=== PATIENT | female | born 1935 | race Asian ===

== ENCOUNTER 2018-11-15 16:45 | Inpatient (IN) | payer OTHER, MEDICAID ==
[~2018-11-15] VITALS: Wt 44.7 kg
[2018-11-15 17:59] LABS: BASO % 0 % (0-3); EOS # 0.1 x10^3/uL (0.0-0.7); EOS % 1 % (0-3); HEMATOCRIT 35.2 % (36.0-47.0); HEMOGLOBIN 11.5 g/dL (12.0-15.5); LYMPH # 1.3 x10^3/uL (1.0-4.8); LYMPH % 19 % (24-48); MEAN CORPUSCULAR HEMOGLOBIN 30 pg (25-35); MEAN CORPUSCULAR HGB CONC 33 g/dL (31-37); MEAN CORPUSCULAR VOLUME 91 fL (79-100); MONO # 0.6 x10^3/uL (0.0-1.1); MONO % 10 % (0-9); NEUT # 4.7 x10^3uL (1.8-7.7); NEUT % 70 % (31-73); PLATELET COUNT 220 x10^3/uL (140-400); RED BLOOD COUNT 3.86 x10^6/uL (3.50-5.40); RED CELL DISTRIBUTION WIDTH 14.3 % (11.5-14.5); WHITE BLOOD COUNT 6.8 x10^3/uL (4.0-11.0)
[2018-11-15 18:03] LABS: BILIRUBIN,URINE NEGATIVE (NEG); CLARITY,URINE CLEAR; COLOR,URINE YELLOW; NITRITE,URINE NEGATIVE (NEG); PH,URINE 5.5; PROTEIN,URINE NEGATIVE (NEG-TRACE); UROBILINOGEN,URINE 0.2 mg/dL (0.2 mg/dL)
--- NOTE | 2018-11-15 18:03 | PHYS DOC ---
Past Medical History Past Medical History: Arthritis, Dementia, High Cholesterol, Hypertension, Stroke (TURNER BETANCUR RESEARCH ASSISTANT PROFESSOR) Past Surgical History: No Surgical History (TURNER BETANCUR RESEARCH ASSISTANT PROFESSOR) Alcohol Use: None Drug Use: None (TURNER BETANCUR RESEARCH ASSISTANT PROFESSOR) Adult General Chief Complaint Chief Complaint: PSYCH EVALUATION HPI HPI Patient is a 83 year old female with history of dementia, hypertension, high cholesterol, who presents to the ED today from a halfway for psychiatric evaluation. Patient is in the ED with the son. The son states he was living with patient for a long time. He states on Tuesday he took patient to a halfway because he was unable to care for her anymore. He states when patient was admitted to the halfway, she was put in a shared room. He states yesterday patient went to the roommate and started removing all her clothes off assuming they were has. The halfway got concerned and sent patient to [facility]. He states she evaluated at [facility] and sent back to the halfway. He states this afternoon he was called and instructed he needs to get patient a psychiatric evaluation because she was walking into other people's rooms and touching them not inappropriately though. Son states patient also was reported to have locked herself in her room. Son states this is not unusual behavior, he states patient used to lock the door at home and could be doing the same behavior at the nursing carmine. Patient unfortunately speaks Marta only and no one in the halfway can communicate with her. Delaney from the PAT team is in the ED. She went and spoke to patient's son with patient in the room. She states [facility] can accept patient if we get EKG, CT of the head, chest x-ray, urine and blood work. Patient had similar tests done at [facility], we tried getting those results, none has been sent by now. We will proceed with getting the same labs here considering [facility] has not sent up labs yet. Labs are negative for any acute findings. UA is negative. Ct of the Head and chest xray are negative. Tx to [facility] (TURNER BETANCUR RESEARCH ASSISTANT PROFESSOR) Review of Systems Review of Systems Constitutional: Denies fever or chills [] Eyes: Denies change in visual acuity, redness, or eye pain [] HENT: Denies nasal congestion or sore throat [] Respiratory: Denies cough or shortness of breath [] Cardiovascular: No additional information not addressed in HPI [] GI: Denies abdominal pain, nausea, vomiting, bloody stools or diarrhea [] : Denies dysuria or hematuria [] Musculoskeletal: Denies back pain or joint pain [] Integument: Denies rash or skin lesions [] Neurologic: Denies headache, focal weakness or sensory changes [] Psych: Psychiatric evaluation All other systems were reviewed and found to be within normal limits, except as documented in this note. (TURNER BETANCUR APRN) Allergies Allergies Allergies Coded Allergies Type Severity Reaction Last Updated Verified No Known Drug Allergies 11/15/18 No (ASHER RAMIREZ Jr. DO) Physical Exam Physical Exam Constitutional: Well developed, well nourished, no acute distress, non-toxic appearance. [] HENT: Normocephalic, atraumatic, bilateral external ears normal, oropharynx moist, no oral exudates, nose normal. [] Eyes: PERRLA, EOMI, conjunctiva normal, no discharge. [] Neck: Normal range of motion, no tenderness, supple, no stridor. [] Cardiovascular:Heart rate regular rhythm, no murmur [] Lungs & Thorax: Bilateral breath sounds clear to auscultation [] Abdomen: Bowel sounds normal, soft, no tenderness, no masses, no pulsatile masses. [] Skin: Warm, dry, no erythema, no rash. [] Back: No tenderness, no CVA tenderness. [] Extremities: No tenderness, no cyanosis, no clubbing, ROM intact, no edema. [] Neurologic: Alert and oriented X 3, normal motor function, normal sensory function, no focal deficits noted. [] Psychologic: Flat affect (TURNER BETANCUR APRN) Current Patient Data Vital Signs Vital Signs Date Time Temp Pulse Resp B/P (MAP) Pulse Ox O2 Delivery O2 Flow Rate FiO2 11/15/18 22:30 58 14 99 Room Air 11/15/18 17:13 99.1 113/64 (80) 99.1 (ASHER RAMIREZ Jr. DO) Lab Values Laboratory Tests Test 11/15/18 17:45 11/15/18 17:51 White Blood Count 6.8 x10^3/uL (4.0-11.0) Red Blood Count 3.86 x10^6/uL (3.50-5.40) Hemoglobin 11.5 g/dL (12.0-15.5) L Hematocrit 35.2 % (36.0-47.0) L Mean Corpuscular Volume 91 fL (79-100) Mean Corpuscular Hemoglobin 30 pg (25-35) Mean Corpuscular Hemoglobin Concent 33 g/dL (31-37) Red Cell Distribution Width 14.3 % (11.5-14.5) Platelet Count 220 x10^3/uL (140-400) Neutrophils (%) (Auto) 70 % (31-73) Lymphocytes (%) (Auto) 19 % (24-48) L Monocytes (%) (Auto) 10 % (0-9) H Eosinophils (%) (Auto) 1 % (0-3) Basophils (%) (Auto) 0 % (0-3) Neutrophils # (Auto) 4.7 x10^3uL (1.8-7.7) Lymphocytes # (Auto) 1.3 x10^3/uL (1.0-4.8) Monocytes # (Auto) 0.6 x10^3/uL (0.0-1.1) Eosinophils # (Auto) 0.1 x10^3/uL (0.0-0.7) Basophils # (Auto) 0.0 x10^3/uL (0.0-0.2) Sodium Level 144 mmol/L (136-145) Potassium Level 3.7 mmol/L (3.5-5.1) Chloride Level 105 mmol/L (98-107) Carbon Dioxide Level 28 mmol/L (21-32) Anion Gap 11 (6-14) Blood Urea Nitrogen 25 mg/dL (7-20) H Creatinine 0.9 mg/dL (0.6-1.0) Estimated GFR (Cockcroft-Gault) 59.7 BUN/Creatinine Ratio 28 (6-20) H Glucose Level 124 mg/dL (70-99) H Calcium Level 9.1 mg/dL (8.5-10.1) Total Bilirubin 0.5 mg/dL (0.2-1.0) Aspartate Amino Transferase (AST) 16 U/L (15-37) Alanine Aminotransferase (ALT) 19 U/L (14-59) Alkaline Phosphatase 84 U/L (46-116) Troponin I Quantitative < 0.017 ng/mL (0.000-0.055) XU-Dbp-S-Type Natriuretic Peptide 33 pg/mL (0-449) Total Protein 7.5 g/dL (6.4-8.2) Albumin 3.3 g/dL (3.4-5.0) L Albumin/Globulin Ratio 0.8 (1.0-1.7) L Ethyl Alcohol Level < 10 mg/dL (0-10) Urine Collection Type U cath Urine Color Yellow Urine Clarity Clear Urine pH 5.5 Urine Specific [place] >=1.030 Urine Protein Negative mg/dL (NEG-TRACE) Urine Glucose (UA) Negative mg/dL (NEG) Urine Ketones (Stick) Negative mg/dL (NEG) Urine Blood Moderate (NEG) Urine Nitrite Negative (NEG) Urine Bilirubin Negative (NEG) Urine Urobilinogen Dipstick 0.2 mg/dL (0.2 mg/dL) Urine Leukocyte Esterase Negative (NEG) Urine RBC 1-2 /HPF (0-2) Urine WBC 1-4 /HPF (0-4) Urine Bacteria 0 /HPF (0-FEW) Urine Mucus Mod /LPF Urine Opiates Screen Neg (NEG) Urine Methadone Screen Neg (NEG) Urine Barbiturates Neg (NEG) Urine Phencyclidine Screen Neg (NEG) Urine Amphetamine/Methamphetamine Neg (NEG) Urine Benzodiazepines Screen Neg (NEG) Urine Cocaine Screen Neg (NEG) Urine Cannabinoids Screen Neg (NEG) Urine Ethyl Alcohol Neg (NEG) Laboratory Tests 11/15/18 17:45 Laboratory Tests 11/15/18 17:45 (ASHER RAMIREZ Jr. DO) Lab Values Laboratory Tests Test 11/15/18 17:45 11/15/18 17:51 White Blood Count 6.8 x10^3/uL (4.0-11.0) Red Blood Count 3.86 x10^6/uL (3.50-5.40) Hemoglobin 11.5 g/dL (12.0-15.5) L Hematocrit 35.2 % (36.0-47.0) L Mean Corpuscular Volume 91 fL (79-100) Mean Corpuscular Hemoglobin 30 pg (25-35) Mean Corpuscular Hemoglobin Concent 33 g/dL (31-37) Red Cell Distribution Width 14.3 % (11.5-14.5) Platelet Count 220 x10^3/uL (140-400) Neutrophils (%) (Auto) 70 % (31-73) Lymphocytes (%) (Auto) 19 % (24-48) L Monocytes (%) (Auto) 10 % (0-9) H Eosinophils (%) (Auto) 1 % (0-3) Basophils (%) (Auto) 0 % (0-3) Neutrophils # (Auto) 4.7 x10^3uL (1.8-7.7) Lymphocytes # (Auto) 1.3 x10^3/uL (1.0-4.8) Monocytes # (Auto) 0.6 x10^3/uL (0.0-1.1) Eosinophils # (Auto) 0.1 x10^3/uL (0.0-0.7) Basophils # (Auto) 0.0 x10^3/uL (0.0-0.2) Sodium Level 144 mmol/L (136-145) Potassium Level 3.7 mmol/L (3.5-5.1) Chloride Level 105 mmol/L (98-107) Carbon Dioxide Level 28 mmol/L (21-32) Anion Gap 11 (6-14) Blood Urea Nitrogen 25 mg/dL (7-20) H Creatinine 0.9 mg/dL (0.6-1.0) Estimated GFR (Cockcroft-Gault) 59.7 BUN/Creatinine Ratio 28 (6-20) H Glucose Level 124 mg/dL (70-99) H Calcium Level 9.1 mg/dL (8.5-10.1) Total Bilirubin 0.5 mg/dL (0.2-1.0) Aspartate Amino Transferase (AST) 16 U/L (15-37) Alanine Aminotransferase (ALT) 19 U/L (14-59) Alkaline Phosphatase 84 U/L (46-116) Troponin I Quantitative < 0.017 ng/mL (0.000-0.055) MP-Vms-D-Type Natriuretic Peptide 33 pg/mL (0-449) Total Protein 7.5 g/dL (6.4-8.2) Albumin 3.3 g/dL (3.4-5.0) L Albumin/Globulin Ratio 0.8 (1.0-1.7) L Ethyl Alcohol Level < 10 mg/dL (0-10) Urine Collection Type U cath Urine Color Yellow Urine Clarity Clear Urine pH 5.5 Urine Specific [place] >=1.030 Urine Protein Negative mg/dL (NEG-TRACE) Urine Glucose (UA) Negative mg/dL (NEG) Urine Ketones (Stick) Negative mg/dL (NEG) Urine Blood Moderate (NEG) Urine Nitrite Negative (NEG) Urine Bilirubin Negative (NEG) Urine Urobilinogen Dipstick 0.2 mg/dL (0.2 mg/dL) Urine Leukocyte Esterase Negative (NEG) Urine RBC 1-2 /HPF (0-2) Urine WBC 1-4 /HPF (0-4) Urine Bacteria 0 /HPF (0-FEW) Urine Mucus Mod /LPF Urine Opiates Screen Neg (NEG) Urine Methadone Screen Neg (NEG) Urine Barbiturates Neg (NEG) Urine Phencyclidine Screen Neg (NEG) Urine Amphetamine/Methamphetamine Neg (NEG) Urine Benzodiazepines Screen Neg (NEG) Urine Cocaine Screen Neg (NEG) Urine Cannabinoids Screen Neg (NEG) Urine Ethyl Alcohol Neg (NEG) Laboratory Tests 11/15/18 17:45 Laboratory Tests 11/15/18 17:45 (TURNER BETANCUR APRN) EKG EKG 18:[address] Ramirez sinus rhythm HR 73 no STEMI[] (TURNER BETANCUR APRN) Radiology/Procedures Radiology/Procedures chest xray interpreted by Dr. Ramirez is negative for any acute findings. [] (TURNER BETANCUR APRN) Course & Med Decision Making Course & Med Decision Making Pertinent Labs and Imaging studies reviewed. (See chart for details) See history of present illness (TURNER BETANCUR APRN) Course & Med Decision Making Patient was seen and evaluated by PAT team. Initial plan was for patient to be transferred to [facility] health unit; however, [facility] is out of network for patient's care plan and patient's son wants patient to remain within network. Vaishali with PAT team was unable to find accepting facility and patient will be admitted overnight and PAT team will reevaluate in the morning. (ASHER RAMIREZ Jr. DO) Dragon Disclaimer Dragon Disclaimer This electronic medical record was generated, in whole or in part, using a voice recognition dictation system. 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
[2018-11-15 18:05] LABS: BACTERIA,URINE 0 /HPF (0-FEW)
[2018-11-15 18:08] LABS: CALCIUM 9.1 mg/dL (8.5-10.1); CREATININE 0.9 mg/dL (0.6-1.0); GFR 59.7; POTASSIUM 3.7 mmol/L (3.5-5.1)
[2018-11-15 18:11] LABS: BARBITURATES NEG (NEG); BENZODIAZEPINES NEG (NEG); CANNABINOIDS NEG (NEG); COCAINE NEG (NEG); METHADONE NEG (NEG); OPIATES NEG (NEG); PHENCYCLIDINE NEG (NEG)
[2018-11-15 18:13] LABS: ALBUMIN 3.3 g/dL (3.4-5.0); ALBUMIN/GLOBULIN RATIO 0.8 (1.0-1.7); TOTAL BILIRUBIN 0.5 mg/dL (0.2-1.0); TOTAL PROTEIN 7.5 g/dL (6.4-8.2)
[2018-11-15 18:15] LABS: AMPHETAMINE/METHAMPHETAMINE NEG (NEG)
--- NOTE | 2018-11-15 18:34 | RAD ---
PQRS Compliance statement: One or more of the following individualized dose reduction techniques were utilized for this examination: 1. Automated exposure control. 2. Adjustment of the mA and/or kV according to patient size. 3. Use of iterative reconstruction technique. Indication:AMS, PRIOR SENT TECHNIQUE: CT head without IV contrast COMPARISON:07/07/2011 FINDINGS: No pathologic extra-axial or intra-axial fluid collection. Mild diffuse cerebral atrophy. The ventricles and basal cisterns are within normal limits. No acute intracranial bleed. No focal loss of loya-white differentiation. Orbits within normal limits. Atherosclerotic calcification seen in the bilateral cavernous segments of the ICA. No suspicious calvarial lesion. Visualized paranasal sinuses and mastoid air cells are clear. IMPRESSION: 1. No acute intracranial process. If concern for acute ischemic stroke is high, please consider MRI brain. Electronically signed by: Edgar Kaur DO (11/15/2018 6:31 PM) [facility]
--- NOTE | 2018-11-15 19:26 | RAD ---
Indication:ER PATIENT. ALTERED MENTAL STATUS. Hx HTN. TECHNIQUE:Portable AP chest X-ray COMPARISON:None FINDINGS: Heart is top normal in size. Aortic knob calcifications suggesting systemic arterial hypertension. Bilateral coarse interstitial opacities. No focal consolidation. No pneumothorax or large pleural effusion. Visualized bony thorax is within normal limits. Mild dextro sclerosis of the midthoracic spine. IMPRESSION: Bilateral interstitial opacities may be secondary to chronic interstitial changes, atypical/viral infection or interstitial pulmonary edema. Electronically signed by: Edgar Kaur DO (11/15/2018 7:23 PM) [facility]
--- NOTE | 2018-11-15 23:40 | NUR ---
The patient, LILLIAM KHANNA, 83 y/o, F admitted by LIDIA ELLER III, DO, was given written information regarding hospital policies, unit procedures and contact persons. Valuables were checked and left with the patient.
[2018-11-16] MEDS ORDERED: LISI10TA2 PO (01:06)
[2018-11-16] MEDS ORDERED: ERGO500027 PO (01:06)
[2018-11-16] MEDS ORDERED: ASPI-630 PO (01:06)
[2018-11-16] MEDS ORDERED: PRAV20TA2 PO (01:06)
[2018-11-16 03:00] VITALS: BP 114/61
--- NOTE | 2018-11-16 06:46 | EKG ---
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
[2018-11-16 07:00] VITALS: BP 121/69
--- NOTE | 2018-11-16 10:51 | NUR ---
GEMA notified by RN pt needs [facility] evaluation at [facility]. GEMA phoned and faxed referral to [facility]. Pt admission and acceptance pending. Will continue to follow.
[2018-11-16 11:00] VITALS: BP 125/71
[2018-11-16 11:25] LABS: ALBUMIN/GLOBULIN RATIO 0.8 (1.0-1.7); CALCIUM 8.2 mg/dL (8.5-10.1); CREATININE 0.7 mg/dL (0.6-1.0); GFR 79.7; POTASSIUM 3.6 mmol/L (3.5-5.1); TOTAL BILIRUBIN 0.7 mg/dL (0.2-1.0); TOTAL PROTEIN 6.9 g/dL (6.4-8.2)
--- NOTE | 2018-11-16 11:45 | NUR ---
Social Work is working on details for discharge to [facility].
--- NOTE | 2018-11-16 12:09 | SSS ---
ADMIT DATE: 11/15/2018 ADMIT AND DISCHARGE DATE: . CHIEF COMPLAINT: Mental status change. HISTORY OF PRESENT ILLNESS: The patient is a pleasant elderly female, who presented with mental status change. She has dementia. She was [facility] from her [facility] for a psychiatric evaluation. The ER called me and explained they were trying to send her to [facility], but that could not happen until she was cleared by us. I saw her a few minutes ago in her room, she seemed to be medically stable to go to [facility]. PAST MEDICAL HISTORY: Dementia, arthritis, hypertension, hyperlipidemia. ALLERGIES: None. FAMILY HISTORY: Coronary artery disease and dementia. SOCIAL HISTORY: She does not drink, smoke or take drugs. MEDICATIONS: Reviewed. She is on pravastatin, lisinopril and aspirin. REVIEW OF SYSTEMS: Unable to obtain. The patient is too confused. PHYSICAL EXAMINATION: VITAL SIGNS: Temperature afebrile, pulse 92, respirations 18, blood pressure 121/69. GENERAL: She is up, walking. Her son is present. He is good support for her. HEART: Distant S1 and S2. LUNGS: Clear. ABDOMEN: Soft. EXTREMITIES: No edema. SKIN: No rash. ENDOCRINE: No thyromegaly. LYMPHATICS: No cervical nodes. HEMATOPOIETIC: No bruising. PSYCHIATRIC: She is anxious. NEUROLOGICAL: She is very confused. LABORATORY DATA AND DIAGNOSTIC STUDIES: Hemoglobin is 11.5, otherwise her hematology is normal. Her electrolytes are normal. Drug screen is negative. Urinalysis is negative. CT of the head negative. ASSESSMENT AND PLAN: Acute on chronic flare of progression of her dementia. The patient is being transferred to [facility]. DISPOSITION: [facility]. ACTIVITY: As tolerated. DIET: Regular. MEDICATIONS: Resume her previous meds. TOTAL TIME: 31 minutes. LIDIA ELLER DO DR: STEPHAN/nicolas JOB#: [id number] / [id number]
--- NOTE | 2018-11-16 12:15 | NUR ---
[facility] is out of network with pt's insurance. SW phoned and faxed referral to [facility]. Pt's son provided DPOA paperwork and a copy placed in chart. Pt admission and acceptance pending. Will continue to follow.
[2018-11-16 15:00] VITALS: BP 150/65
--- NOTE | 2018-11-16 15:14 | DS ---
DATE OF DISCHARGE: 11/16/2018 ADMISSION DIAGNOSIS: Owqlw-ky-yvumqyk progression of dementia. DISCHARGE DIAGNOSIS: [id number] progression of dementia. HOSPITAL COURSE: The patient is a pleasant 83-year-old female who presented with acute flare of her dementia. Basically, [facility] was at [facility], they could not care for her anymore. She was getting too irritated and confused. We admitted the patient, did a medical evaluation. Everything seems to be okay. She just seems to be progressing with her dementia. She is going to go to [facility]. It should be noted I have declared the patient incompetent to make medical decision. I would like that incompetency is effective as of today and I would like her son to become her DPOA for medical decision making from this point forward. DISPOSITION: [facility]. ACTIVITY: As tolerated. DIET: Low sodium. MEDICATIONS: Please see the MRAD. LIDIA ELLER DO DR: STEPHAN/nicolas JOB#: [id number] / [id number]
--- NOTE | 2018-11-16 15:42 | NUR ---
GEMA following pt. Spoke with Delaney, phone: [phone] at [facility] and they reported they are still reviewing clinicals. Per Delaney's request, GEMA provided phone number for Physician to call for Physician to Physician report. Physician notified.
--- NOTE | 2018-11-16 15:48 | NUR ---
GEMA following pt. Spoke with Delaney at [facility] and she reported they have accepted pt but wants a confirmation from [facility] if they will take pt back after completing treatment. Delaney had called the facility and the administrators were out office and wont return until tomorrow morning. Delaney stated they will take pt tomorrow after speaking with VIVIEN at [facility]. GEMA left a voice mail to Tyrese at [facility] as well. Discussed with ARLETTE.
[2018-11-16 19:00] VITALS: BP 190/88
[2018-11-16 23:00] VITALS: BP 138/81
[2018-11-17 07:00] VITALS: BP 140/82
--- NOTE | 2018-11-17 09:44 | NUR ---
SW following pt. Spoke with Delaney at [facility] and they are able to take pt today. SW arranged transportation via [employer] at 1100. Pt's son aware of plan, agreeable and is provided with address/phone number for [facility]. He is also aware he will have to sign pt in at Psych facility upon dc. Packet on chart. Discussed with RN and Shelly at [facility].
--- NOTE | 2018-11-17 10:20 | NUR ---
Report called to Sofia CHONG at [facility]. See nursing communication.
[2018-11-17 11:00] VITALS: BP 171/79
--- NOTE | 2018-11-17 11:21 | PDOC ---
PROGRESS NOTES Chief Complaint Chief Complaint Mental Status Change History of Present Illness History of Present Illness Patient is doing well today. She is up and ambulating well. She likes to walk the halls. She is still pleasantly confused. She does not speak Tunisian, but she is a very pleasant lady. Vitals Vitals Vital Signs Date Time Temp Pulse Resp B/P (MAP) Pulse Ox O2 Delivery O2 Flow Rate FiO2 11/17/18 08:00 Room Air 11/17/18 07:00 98.7 77 16 140/82 (101) 98 98.7 Physical Exam General: Alert, Cooperative, No acute distress Heart: Regular rate, Normal S1, Normal S2, No murmurs Lungs: Clear Abdomen: Soft, No tenderness, No masses Extremities: No edema, Normal pulses, No tenderness/swelling Skin: No rashes, No breakdown, No significant lesion Review of Systems Review of Systems Was unable to obtain ROS due to language barrier. Assessment and Plan Assessmemt and Plan Problems Medical Problems: (1) Evaluation by psychiatric service required Status: Acute (2) Senile dementia with acute confusional state Status: Acute Assessment: Dementia Mental Status Change Khmer speaker Plan: Continue monitoring F/u labs Home meds PT/OT DVT prophylaxis Discharge to [facility] Review of Relevant I have reviewed the following items javier (where applicable) has been applied. Labs Laboratory Tests Test 11/15/18 17:45 11/15/18 17:51 11/16/18 01:25 11/16/18 10:35 White Blood Count 6.8 x10^3/uL (4.0-11.0) Red Blood Count 3.86 x10^6/uL (3.50-5.40) Hemoglobin 11.5 g/dL (12.0-15.5) Hematocrit 35.2 % (36.0-47.0) Mean Corpuscular Volume 91 fL (79-100) Mean Corpuscular Hemoglobin 30 pg (25-35) Mean Corpuscular Hemoglobin Concent 33 g/dL (31-37) Red Cell Distribution Width 14.3 % (11.5-14.5) Platelet Count 220 x10^3/uL (140-400) Neutrophils (%) (Auto) 70 % (31-73) Lymphocytes (%) (Auto) 19 % (24-48) Monocytes (%) (Auto) 10 % (0-9) Eosinophils (%) (Auto) 1 % (0-3) Basophils (%) (Auto) 0 % (0-3) Neutrophils # (Auto) 4.7 x10^3uL (1.8-7.7) Lymphocytes # (Auto) 1.3 x10^3/uL (1.0-4.8) Monocytes # (Auto) 0.6 x10^3/uL (0.0-1.1) Eosinophils # (Auto) 0.1 x10^3/uL (0.0-0.7) Basophils # (Auto) 0.0 x10^3/uL (0.0-0.2) Sodium Level 144 mmol/L (136-145) 144 mmol/L (136-145) Potassium Level 3.7 mmol/L (3.5-5.1) 3.6 mmol/L (3.5-5.1) Chloride Level 105 mmol/L (98-107) 107 mmol/L (98-107) Carbon Dioxide Level 28 mmol/L (21-32) 27 mmol/L (21-32) Anion Gap 11 (6-14) 10 (6-14) Blood Urea Nitrogen 25 mg/dL (7-20) 15 mg/dL (7-20) Creatinine 0.9 mg/dL (0.6-1.0) 0.7 mg/dL (0.6-1.0) Estimated GFR (Cockcroft-Gault) 59.7 79.7 BUN/Creatinine Ratio 28 (6-20) 21 (6-20) Glucose Level 124 mg/dL (70-99) 90 mg/dL (70-99) Calcium Level 9.1 mg/dL (8.5-10.1) 8.2 mg/dL (8.5-10.1) Total Bilirubin 0.5 mg/dL (0.2-1.0) 0.7 mg/dL (0.2-1.0) Aspartate Amino Transf (AST/SGOT) 16 U/L (15-37) 15 U/L (15-37) Alanine Aminotransferase (ALT/SGPT) 19 U/L (14-59) 16 U/L (14-59) Alkaline Phosphatase 84 U/L (46-116) 75 U/L (46-116) Troponin I Quantitative < 0.017 ng/mL (0.000-0.055) DU-Wlc-E-Type Natriuretic Peptide 33 pg/mL (0-449) Total Protein 7.5 g/dL (6.4-8.2) 6.9 g/dL (6.4-8.2) Albumin 3.3 g/dL (3.4-5.0) 3.0 g/dL (3.4-5.0) Albumin/Globulin Ratio 0.8 (1.0-1.7) 0.8 (1.0-1.7) Ethyl Alcohol Level < 10 mg/dL (0-10) Urine Collection Type U cath Urine Color Yellow Urine Clarity Clear Urine pH 5.5 Urine Specific [place] >=1.030 Urine Protein Negative mg/dL (NEG-TRACE) Urine Glucose (UA) Negative mg/dL (NEG) Urine Ketones (Stick) Negative mg/dL (NEG) Urine Blood Moderate (NEG) Urine Nitrite Negative (NEG) Urine Bilirubin Negative (NEG) Urine Urobilinogen Dipstick 0.2 mg/dL (0.2 mg/dL) Urine Leukocyte Esterase Negative (NEG) Urine RBC 1-2 /HPF (0-2) Urine WBC 1-4 /HPF (0-4) Urine Bacteria 0 /HPF (0-FEW) Urine Mucus Mod /LPF Urine Opiates Screen Neg (NEG) Urine Methadone Screen Neg (NEG) Urine Barbiturates Neg (NEG) Urine Phencyclidine Screen Neg (NEG) Urine Amphetamine/Methamphetamine Neg (NEG) Urine Benzodiazepines Screen Neg (NEG) Urine Cocaine Screen Neg (NEG) Urine Cannabinoids Screen Neg (NEG) Urine Ethyl Alcohol Neg (NEG) Nasal Screen MRSA (PCR) Negative (Negative) Medications Active Scripts Active Reported Vitamin D2 (Ergocalciferol (Vitamin D2)) 50,000 Unit Capsule 1 Cap PO WEEKLY Pravastatin Sodium 20 Mg Tablet 1 Tab PO DAILY Lisinopril 10 Mg Tablet 1 Tab PO DAILY Aspirin 81 Mg Tab.chew 1 Tab PO DAILY Vitals/I & O Vital Sign - Last 24 Hours 11/16/18 11/16/18 11/16/18 11/16/18 15:00 19:00 20:00 23:00 Temp 98.3 97.8 98.4 98.3 97.8 98.4 Pulse 68 79 86 Resp 18 18 18 B/P (MAP) 150/65 (93) 190/88 (122) 138/81 (100) Pulse Ox 99 97 98 O2 Delivery Room Air Room Air Room Air Room Air 11/17/18 11/17/18 07:00 08:00 Temp 98.7 98.7 Pulse 77 Resp 16 B/P (MAP) 140/82 (101) Pulse Ox 98 O2 Delivery Room Air Room Air Intake and Output 11/16/18 11/16/18 11/17/18 15:00 23:00 07:00 Intake Total 50 ml Balance 50 ml LIDIA ELLER III DO Nov 17, 2018 11:21
--- NOTE | 2018-11-17 11:57 | NUR ---
Patient discharge to [facility]. per [facility] Amb. per emerson with copied chart in discharge envelope, and all belongings. See notes and orders.
== END 2018-11-17 11:44 | DRG 884 ==
LOC: ER 16:45 → 5 NORTH 22:53
PROVIDERS: ADMIT Internal Medicine; ATTEND Internal Medicine
DX: F03.90 Unspecified dementia, unspecified severity, without behavioral disturbance, psychotic disturbance, mood disturbance, and anxiety (principal); F05 Delirium due to known physiological condition; I10 Essential (primary) hypertension; E78.00 Pure hypercholesterolemia, unspecified; M19.90 Unspecified osteoarthritis, unspecified site; E78.5 Hyperlipidemia, unspecified; Z82.49 Family history of ischemic heart disease and other diseases of the circulatory system; Z86.73 Personal history of transient ischemic attack (TIA), and cerebral infarction without residual deficits
CPT/HCPCS: 36415; 70450; 71045; 80053; 80307; 81001; 83880; 84484; 85025; 87641; 93005; G0480; 99285-25

== ENCOUNTER 2019-06-07 09:14 | Inpatient (IN) | payer MEDICARE, MEDICAID ==
[~2019-06-07] VITALS: Ht 152.4 cm; Wt 47.2 kg
[~2019-06-07 09:14] MED LIST: ACET500T68 PO; ASPI-630 PO; BUDE0.5A NEB; CETI10TA22 PO; CHOL10003 PO; DOXY100T PO; ERGO500027 PO; HALO1TAB PO; IBUP-1027 PO; IPRA3AMP29 NEB; LACT1CAP19 PO; LISI10TA2 PO; POTA20TA4 PO; PRAV20TA2 PO; QUET50TA79 PO
--- NOTE | 2019-06-07 09:48 | PHYS DOC ---
Past Medical History Past Medical History: Arthritis (osteoarthritis), Bronchitis, CVA (R sided hemiparesis, hypokalemia), Dementia, High Cholesterol, Hypertension, Stroke, Other (vitamin D deficiency, ) Additional Past Medical Histor: abnormal gait, generalized weakness, cognitive communication deficit Past Surgical History: No Surgical History Alcohol Use: None Drug Use: None Adult General Chief Complaint Chief Complaint: HIP PAIN HPI HPI Patient is a 84 year old female brought to the emergency department by [facility] following a non-witnessed fall. Nursing staff at the [facility] called our charge nurse and reported that the patient was unable to bear weight on her L leg after being helped up. Patient was found sitting up against the wall in her room. Using the [employer] laboratory geneticist line to speak with patient, she denies any leg or hip pain. Patient's RLE is noted to be red with 2+ edema on arrival. Patient reports that she got up to go to the bathroom and slipped on the wet floor onto her buttocks. She denies LOC, N/V, or extremity pain. She only reports dull lower abdominal pain after urination and pain with urination. Review of Systems Review of Systems ROS Constitutional: Denies fever Respiratory: Denies cough or shortness of breath [] Cardiovascular: No additional information not addressed in HPI, denies chest pain [] GI: Denies nausea, vomiting, or diarrhea; see HPI : reports dysuria Musculoskeletal: Denies back pain or joint pain [] Integument: see HPI Neurologic: Denies headache Complete systems were reviewed and found to be within normal limits, except as documented in this note. Allergies Allergies Allergies Coded Allergies Type Severity Reaction Last Updated Verified No Known Drug Allergies 11/15/18 No Physical Exam Physical Exam Constitutional: Well developed, well nourished, no acute distress, non-toxic appearance. [] HENT: Normocephalic, atraumatic, bilateral external ears normal, nose normal. [] Eyes: PERRLA, no discharge. [] Neck: Normal range of motion, no tenderness, supple, no stridor. [] Cardiovascular:Heart rate regular rhythm, no murmur [] Lungs & Thorax: Bilateral breath sounds clear to auscultation, no retractions, respirations are even and unlabored,[] Abdomen: Bowel sounds normal, soft, no tenderness, no masses, no pulsatile masses. [] Skin: Warm, dry; red discoloration noted to RLE without warmth Extremities: No bony tenderness, no cyanosis, no clubbing, 2+ edema to RLE Neurologic: Alert and oriented X 2 pt has hx of dementia Psychologic: Affect normal, judgement normal, mood normal. [] Current Patient Data Vital Signs Vital Signs Date Time Temp Pulse Resp B/P (MAP) Pulse Ox O2 Delivery O2 Flow Rate FiO2 06/07/19 10:45 60 18 98 06/07/19 09:20 97.8 154/67 (96) Room Air 97.8 Lab Values Laboratory Tests Test 06/07/19 09:26 06/07/19 10:50 Urine Collection Type U cath Urine Color Yellow Urine Clarity Clear Urine pH 5.5 Urine Specific [place] 1.020 Urine Protein Negative mg/dL (NEG-TRACE) Urine Glucose (UA) Negative mg/dL (NEG) Urine Ketones (Stick) Negative mg/dL (NEG) Urine Blood Moderate (NEG) Urine Nitrite Negative (NEG) Urine Bilirubin Negative (NEG) Urine Urobilinogen Dipstick 0.2 mg/dL (0.2 mg/dL) Urine Leukocyte Esterase Negative (NEG) Urine RBC 3-5 /HPF (0-2) Urine WBC 0 /HPF (0-4) Urine Amorphous Sediment Present /HPF Urine Bacteria 0 /HPF (0-FEW) White Blood Count 6.2 x10^3/uL (4.0-11.0) Red Blood Count 4.16 x10^6/uL (3.50-5.40) Hemoglobin 12.2 g/dL (12.0-15.5) Hematocrit 37.2 % (36.0-47.0) Mean Corpuscular Volume 89 fL (79-100) Mean Corpuscular Hemoglobin 29 pg (25-35) Mean Corpuscular Hemoglobin Concent 33 g/dL (31-37) Red Cell Distribution Width 14.7 % (11.5-14.5) H Platelet Count 199 x10^3/uL (140-400) Neutrophils (%) (Auto) 68 % (31-73) Lymphocytes (%) (Auto) 20 % (24-48) L Monocytes (%) (Auto) 10 % (0-9) H Eosinophils (%) (Auto) 1 % (0-3) Basophils (%) (Auto) 0 % (0-3) Neutrophils # (Auto) 4.2 x10^3/uL (1.8-7.7) Lymphocytes # (Auto) 1.3 x10^3/uL (1.0-4.8) Monocytes # (Auto) 0.6 x10^3/uL (0.0-1.1) Eosinophils # (Auto) 0.1 x10^3/uL (0.0-0.7) Basophils # (Auto) 0.0 x10^3/uL (0.0-0.2) Prothrombin Time 13.0 SEC (11.7-14.0) Prothrombin Time INR 1.0 (0.8-1.1) Activated Partial Thromboplast Time 46 SEC (24-38) H Sodium Level 144 mmol/L (136-145) Potassium Level 3.3 mmol/L (3.5-5.1) L Chloride Level 108 mmol/L (98-107) H Carbon Dioxide Level 27 mmol/L (21-32) Anion Gap 9 (6-14) Blood Urea Nitrogen 19 mg/dL (7-20) Creatinine 0.7 mg/dL (0.6-1.0) Estimated GFR (Cockcroft-Gault) 79.5 BUN/Creatinine Ratio 27 (6-20) H Glucose Level 76 mg/dL (70-99) Lactic Acid Level 2.8 mmol/L (0.4-2.0) H Calcium Level 8.6 mg/dL (8.5-10.1) Total Bilirubin 1.2 mg/dL (0.2-1.0) H Aspartate Amino Transferase (AST) 17 U/L (15-37) Alanine Aminotransferase (ALT) 12 U/L (14-59) L Alkaline Phosphatase 77 U/L (46-116) Troponin I Quantitative < 0.017 ng/mL (0.000-0.055) Total Protein 7.7 g/dL (6.4-8.2) Albumin 3.3 g/dL (3.4-5.0) L Albumin/Globulin Ratio 0.8 (1.0-1.7) L Laboratory Tests 06/07/19 10:50 Laboratory Tests 06/07/19 10:50 EKG EKG 0934- SR leftward axis, T abnormality in inferior leads, no STEMI. rate of [address] Ramirez[] Radiology/Procedures Radiology/Procedures PROCEDURE: PELVIS PELVIS Clinical Indication: Fall, pain. Comparison: None. Findings: There is acute traumatic left subcapital femoral neck fracture. There is slight cortical offset. No significant displacement. The hip joints are intact, mild degenerative change for patient age. There is diffuse demineralization. No acute pelvic fracture is identified. The sacrum is obscured due to overlying soft tissues. IMPRESSION: Acute traumatic left subcapital femoral neck fracture.[] PROCEDURE: CHEST AP ONLY CHEST AP ONLY Clinical Indication: Fall today Comparison: AP chest January 24, 2019. Findings: Atherosclerotic and tortuous thoracic aorta. Cardiac size is normal. Lungs are clear. There is no pneumothorax. No pleural effusion is appreciated. No acute bone abnormality. There are old right lateral rib fractures. IMPRESSION: No acute cardiopulmonary process. PROCEDURE: DUPLEX LOWER EX ARTERIAL RIGHT Right LOWER EXTREMITY DUPLEX ARTERY ULTRASOUND Indication: Right lower extremity redness, pain, decreased pulses. Comparison: None. Procedure: Real-time grayscale, color flow Doppler, and Doppler spectral waveform analysis of the arterial system of the lower extremity is performed. Findings: Atherosclerotic calcifications are noted. No arterial occlusion is seen. Waveforms in the common femoral, profunda, superficial femoral, and popliteal arteries are triphasic. Anterior tibial artery waveform is biphasic. Monophasic waveforms in the posterior tibial, peroneal, and dorsalis pedis arteries suggest there is flow limiting stenosis in the proximal calf. No focal elevated peak systolic velocity is identified. IMPRESSION: Monophasic waveforms in all calf arteries except the anterior tibial artery suggests flow-limiting stenosis in the proximal calf. Course & Med Decision Making Course & Med Decision Making Pertinent Labs and Imaging studies reviewed. (See chart for details) Dx: L hip fracture, RLE stenosis, fall 1107- spoke with Dr. Mishra re: hip fracture, he states it does not appear acute, requests CT of pelvis 1111- Spoke with Dr. Carson who is the admitting physician, and care was assumed following discussion of patient. Patient's vital signs stable. Patient remains afebrile, appears nontoxic, respirations even and unlabored. Patient will be admitted to the med/surg floor. Patient's case and plan of care also discussed with Dr. Ramirez [] Dragon Disclaimer Dragon Disclaimer This electronic medical record was generated, in whole or in part, using a voice recognition dictation system. 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
[2019-06-07 09:53] LABS: BILIRUBIN,URINE NEGATIVE (NEG); CLARITY,URINE CLEAR; COLOR,URINE YELLOW; NITRITE,URINE NEGATIVE (NEG); PH,URINE 5.5; PROTEIN,URINE NEGATIVE (NEG-TRACE); UROBILINOGEN,URINE 0.2 mg/dL (0.2 mg/dL)
[2019-06-07 10:02] LABS: AMORPHOUS SEDIMENT,UR PRESENT /HPF; BACTERIA,URINE 0 /HPF (0-FEW); WBC,URINE 0 /HPF (0-4)
--- NOTE | 2019-06-07 10:19 | RAD ---
PELVIS Clinical Indication: Fall, pain. Comparison: None. Findings: There is acute traumatic left subcapital femoral neck fracture. There is slight cortical offset. No significant displacement. The hip joints are intact, mild degenerative change for patient age. There is diffuse demineralization. No acute pelvic fracture is identified. The sacrum is obscured due to overlying soft tissues. IMPRESSION: Acute traumatic left subcapital femoral neck fracture. Electronically signed by: Nba Vargas MD (06/07/2019 10:16 AM) [id number]
--- NOTE | 2019-06-07 10:21 | RAD ---
CHEST AP ONLY Clinical Indication: Fall today Comparison: AP chest January 24, 2019. Findings: Atherosclerotic and tortuous thoracic aorta. Cardiac size is normal. Lungs are clear. There is no pneumothorax. No pleural effusion is appreciated. No acute bone abnormality. There are old right lateral rib fractures. IMPRESSION: No acute cardiopulmonary process. Electronically signed by: Nba Vargas MD (06/07/2019 10:18 AM) [id number]
[2019-06-07 10:59] LABS: BASO % 0 % (0-3); EOS # 0.1 x10^3/uL (0.0-0.7); EOS % 1 % (0-3); HEMATOCRIT 37.2 % (36.0-47.0); HEMOGLOBIN 12.2 g/dL (12.0-15.5); LYMPH # 1.3 x10^3/uL (1.0-4.8); LYMPH % 20 % (24-48); MEAN CORPUSCULAR HEMOGLOBIN 29 pg (25-35); MEAN CORPUSCULAR HGB CONC 33 g/dL (31-37); MEAN CORPUSCULAR VOLUME 89 fL (79-100); MONO # 0.6 x10^3/uL (0.0-1.1); MONO % 10 % (0-9); NEUT # 4.2 x10^3/uL (1.8-7.7); NEUT % 68 % (31-73); PLATELET COUNT 199 x10^3/uL (140-400); RED BLOOD COUNT 4.16 x10^6/uL (3.50-5.40); RED CELL DISTRIBUTION WIDTH 14.7 % (11.5-14.5); WHITE BLOOD COUNT 6.2 x10^3/uL (4.0-11.0)
--- NOTE | 2019-06-07 11:02 | RAD ---
Right LOWER EXTREMITY DUPLEX ARTERY ULTRASOUND Indication: Right lower extremity redness, pain, decreased pulses. Comparison: None. Procedure: Real-time grayscale, color flow Doppler, and Doppler spectral waveform analysis of the arterial system of the lower extremity is performed. Findings: Atherosclerotic calcifications are noted. No arterial occlusion is seen. Waveforms in the common femoral, profunda, superficial femoral, and popliteal arteries are triphasic. Anterior tibial artery waveform is biphasic. Monophasic waveforms in the posterior tibial, peroneal, and dorsalis pedis arteries suggest there is flow limiting stenosis in the proximal calf. No focal elevated peak systolic velocity is identified. IMPRESSION: Monophasic waveforms in all calf arteries except the anterior tibial artery suggests flow-limiting stenosis in the proximal calf. Electronically signed by: Nba Vargas MD (06/07/2019 10:59 AM) [id number]
[2019-06-07 11:12] LABS: CALCIUM 8.6 mg/dL (8.5-10.1); CREATININE 0.7 mg/dL (0.6-1.0); GFR 79.5; POTASSIUM 3.3 mmol/L (3.5-5.1)
[2019-06-07] MEDS ORDERED: CETIRIZINE HCL 10 MG TABLET. PO PRN (11:15)
[2019-06-07] MEDS ORDERED: HYDROcodone/APAP 5/325MG 1 TAB TABLET PO PRN (11:15)
[2019-06-07] MEDS ORDERED: MORPHINE SULFATE 2 MG/ML VIAL. IV PRN (11:15)
[2019-06-07] MEDS ORDERED: ONDANSETRON PF 4 MG/2 ML VIAL. IVP PRN (11:15)
[2019-06-07] MEDS ORDERED: CALCIUM CARBONATE 500 MG TAB.CHEW PO PRN (11:15)
[2019-06-07] MEDS ORDERED: TEMAZEPAM 7.5 MG CAPSULE PO PRN (11:15)
[2019-06-07] MEDS ORDERED: cloNIDine HCL 0.1 MG TABLET PO PRN (11:15)
[2019-06-07] MEDS: IPRATRPIUM/ALBUTEROL 0.5/2.5MG 3 ML NEBU. NEB SCH ×3 (11:24→19:55)
[2019-06-07] MEDS: BUDESONIDE 0.5 MG/2 ML NEBU. NEB SCH ×2 (11:24→19:55)
[2019-06-07 11:27] LABS: ALBUMIN 3.3 g/dL (3.4-5.0); ALBUMIN/GLOBULIN RATIO 0.8 (1.0-1.7); TOTAL BILIRUBIN 1.2 mg/dL (0.2-1.0); TOTAL PROTEIN 7.7 g/dL (6.4-8.2)
--- NOTE | 2019-06-07 11:46 | EKG ---
[facility] [address] [place] [address] Test Date: 2019-06-07 Test Time: 09:34:08 Pat Name: LILLIAM KHANNA Department: Room: Gender: F Transmission Calibration Engineer: : [id number] Requested By: ANGELITA SAEED Order Number: [id number] Reading MD: Jovany Cole MD Measurements Intervals [place] Rate: 66 P: 12 MA: 198 QRS: -16 QRSD: 94 T: 8 QT: 394 QTc: 414 Interpretive Statements SINUS RHYTHM Electronically Signed On 06-25-2019 8:16:28 TOW FEEDER by Jovany Cole MD
--- NOTE | 2019-06-07 11:51 | PDOC1 ---
History and Physical Date of Admission Date of Admission DATE: 06/07/19 TIME: 11:46 Identification/Chief Complaint Chief Complaint unwitnessed fall at SNU Source Source: Caregiver, Chart review History of Present Illness History of Present Illness NOt the best historian, lives in SNU and just speaks [place], Full code, unwitnessed fall in SNU. Sent here, SOme redness legs, no skin breaks, no fevers, non toxic appearing but maybe confused. VS and labs ok. Hip xray: Acute traumatic left subcapital femoral neck fracture. CXR: non impressive Arterial dopplers maybe slow wave pattern Ortho requests CT extremity, could be a subacute/chronic fx vs an acute one NO fam at bedside Past Medical History Cardiovascular: HTN, Hyperlipidemia Pulmonary: No pertinent hx GI: No pertinent hx Heme/Onc: No pertinent hx Hepatobiliary: No pertinent hx Psych: Psychosis Rheumatologic: No pertinent hx Infectious disease: No pertinent hx Renal/: No pertinent hx Endocrine: No pertinent hx Past Surgical History Past Surgical History: No pertinent history Family History Family History: High Cholestrol, Hypertension Social History Smoke: No ALCOHOL: none Drugs: None Current Problem List Problem List Problems Medical Problems: (1) Closed left hip fracture Status: Acute (2) Fall Status: Acute (3) 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 Status: Acute Current Medications Current Medications Current Medications Clonidine HCl (Catapres) 0.1 mg PRN Q1HR PRN PO HYPERTENSION; Start 06/07/19 at 11:15 Acetaminophen (Tylenol) 500 mg TID PO ; Start 06/07/19 at 14:00 Budesonide (Pulmicort) 0.5 mg RTBID NEB Last administered on 06/07/19at 11:24; Start 06/07/19 at 12:00 Cetirizine HCl (ZyrTEC) 10 mg PRN DAILY PRN PO ALLERGIES; Start 06/07/19 at 11:15 Vitamin D (Vitamin D3) 1,000 unit DAILY PO ; Start 06/08/19 at 09:00 Albuterol/ Ipratropium (Duoneb) 3 ml RTQID NEB Last administered on 06/07/19at 11:24; Start 06/07/19 at 12:00 Lactobacillus Rhamnosus (Culturelle) 1 cap BID PO ; Start 06/07/19 at 21:00 Lisinopril (Prinivil) 10 mg DAILY PO ; Start 06/08/19 at 09:00 Potassium Chloride (Klor-Con) 20 meq DAILYWBKFT PO ; Start 06/08/19 at 08:00 Quetiapine Fumarate (SEROquel XR) 50 mg DAILY PO ; Start 06/08/19 at 09:00 Haloperidol (Haldol) 1 mg QHS PO ; Start 06/07/19 at 21:00 Atorvastatin Calcium (Lipitor) 5 mg QHS PO ; Start 06/07/19 at 21:00 Ondansetron HCl (Zofran) 4 mg PRN Q6HRS PRN IVP NAUSEA/VOMITING; Start 06/07/19 at 11:15 Acetaminophen/ Hydrocodone Bitart (Lortab 5/325) 1 tab PRN Q4HRS PRN PO PAIN; Start 06/07/19 at 11:15 Morphine Sulfate (Morphine Sulfate) 2 mg PRN Q2HR PRN IV PAIN; Start 06/07/19 at 11:15 Temazepam (Restoril) 7.5 mg PRN QHS PRN PO INSOMNIA; Start 06/07/19 at 11:15 Calcium Carbonate/ Glycine (Tums) 500 mg PRN AFTMEALHC PRN PO INDIGESTION; Start 06/07/19 at 11:15 Active Scripts Active Quetiapine Fumarate ER (Quetiapine Fumarate) 50 Mg Tab.er.24h 50 Mg PO DAILY 14 Days Klor-Con M20 (Potassium Chloride) 20 Meq Tab.er.prt 20 Meq PO DAILYWBKFT 10 Days Culturelle (Lactobacillus Rhamnosus Gg) 1 Each Cap.sprink 1 Cap PO BID 30 Days Budesonide 0.5 Mg/2 Ml Ampul.neb 0.5 Mg NEB RTBID 14 Days Duoneb 0.5-3(2.5) Mg/3 Ml (Albuterol/Ipratropium) 3 Ml Ampul.neb 3 Ml NEB RTQID 14 Days Doxycycline Hyclate 100 Mg Tablet 100 Mg PO BID 10 Days Reported Ibuprofen 400 Mg Tablet 400 Mg PO PRN Q8HRS PRN Haloperidol 1 Mg Tablet 1 Mg PO QHS Vitamin D3 (Cholecalciferol (Vitamin D3)) 1,000 Unit Tablet 1 Tab PO DAILY Zyrtec (Cetirizine Hcl) 10 Mg Tablet 1 Tab PO PRN DAILY PRN Acetaminophen 500 Mg Tablet 1 Tab PO TID Pravastatin Sodium 20 Mg Tablet 1 Tab PO DAILY Lisinopril 10 Mg Tablet 1 Tab PO DAILY Aspirin 81 Mg Tab.chew 1 Tab PO DAILY Allergies Allergies: Coded Allergies: No Known Drug Allergies (Unverified , 11/15/18) ROS Review of System limited by language barrier Physical Exam General: No acute distress HEENT: Atraumatic, PERRLA, EOMI Lungs: Clear to auscultation, Normal air movement Heart: S1S2, RRR, no thrills, no rubs, no gallops Cardiovascular: S1, S2 Abdomen: Normal bowel sounds, Soft, No tenderness, No hepatosplenomegaly, No masses Rectal Exam: not examined PELVIC: Nml ext genitalia Extremities: No clubbing, No cyanosis, No edema, Normal pulses, Other (red skinrash, anterior skin RT > left) Skin: No breakdown Vitals Vitals Vital Signs Date Time Temp Pulse Resp B/P (MAP) Pulse Ox O2 Delivery O2 Flow Rate FiO2 06/07/19 11:28 99 Room Air 06/07/19 11:15 76 18 06/07/19 09:20 97.8 154/67 (96) 97.8 Labs Labs Laboratory Tests Test 06/07/19 09:26 06/07/19 10:50 Urine Collection Type U cath Urine Color Yellow Urine Clarity Clear Urine pH 5.5 Urine Specific [place] 1.020 Urine Protein Negative mg/dL (NEG-TRACE) Urine Glucose (UA) Negative mg/dL (NEG) Urine Ketones (Stick) Negative mg/dL (NEG) Urine Blood Moderate (NEG) Urine Nitrite Negative (NEG) Urine Bilirubin Negative (NEG) Urine Urobilinogen Dipstick 0.2 mg/dL (0.2 mg/dL) Urine Leukocyte Esterase Negative (NEG) Urine RBC 3-5 /HPF (0-2) Urine WBC 0 /HPF (0-4) Urine Amorphous Sediment Present /HPF Urine Bacteria 0 /HPF (0-FEW) White Blood Count 6.2 x10^3/uL (4.0-11.0) Red Blood Count 4.16 x10^6/uL (3.50-5.40) Hemoglobin 12.2 g/dL (12.0-15.5) Hematocrit 37.2 % (36.0-47.0) Mean Corpuscular Volume 89 fL (79-100) Mean Corpuscular Hemoglobin 29 pg (25-35) Mean Corpuscular Hemoglobin Concent 33 g/dL (31-37) Red Cell Distribution Width 14.7 % (11.5-14.5) Platelet Count 199 x10^3/uL (140-400) Neutrophils (%) (Auto) 68 % (31-73) Lymphocytes (%) (Auto) 20 % (24-48) Monocytes (%) (Auto) 10 % (0-9) Eosinophils (%) (Auto) 1 % (0-3) Basophils (%) (Auto) 0 % (0-3) Neutrophils # (Auto) 4.2 x10^3/uL (1.8-7.7) Lymphocytes # (Auto) 1.3 x10^3/uL (1.0-4.8) Monocytes # (Auto) 0.6 x10^3/uL (0.0-1.1) Eosinophils # (Auto) 0.1 x10^3/uL (0.0-0.7) Basophils # (Auto) 0.0 x10^3/uL (0.0-0.2) Prothrombin Time 13.0 SEC (11.7-14.0) Prothromb Time International Ratio 1.0 (0.8-1.1) Activated Partial Thromboplast Time 46 SEC (24-38) Sodium Level 144 mmol/L (136-145) Potassium Level 3.3 mmol/L (3.5-5.1) Chloride Level 108 mmol/L (98-107) Carbon Dioxide Level 27 mmol/L (21-32) Anion Gap 9 (6-14) Blood Urea Nitrogen 19 mg/dL (7-20) Creatinine 0.7 mg/dL (0.6-1.0) Estimated GFR (Cockcroft-Gault) 79.5 BUN/Creatinine Ratio 27 (6-20) Glucose Level 76 mg/dL (70-99) Lactic Acid Level 2.8 mmol/L (0.4-2.0) Calcium Level 8.6 mg/dL (8.5-10.1) Total Bilirubin 1.2 mg/dL (0.2-1.0) Aspartate Amino Transf (AST/SGOT) 17 U/L (15-37) Alanine Aminotransferase (ALT/SGPT) 12 U/L (14-59) Alkaline Phosphatase 77 U/L (46-116) Troponin I Quantitative < 0.017 ng/mL (0.000-0.055) Total Protein 7.7 g/dL (6.4-8.2) Albumin 3.3 g/dL (3.4-5.0) Albumin/Globulin Ratio 0.8 (1.0-1.7) Laboratory Tests Test 06/07/19 09:26 06/07/19 10:50 Urine Collection Type U cath Urine Color Yellow Urine Clarity Clear Urine pH 5.5 Urine Specific [place] 1.020 Urine Protein Negative mg/dL (NEG-TRACE) Urine Glucose (UA) Negative mg/dL (NEG) Urine Ketones (Stick) Negative mg/dL (NEG) Urine Blood Moderate (NEG) Urine Nitrite Negative (NEG) Urine Bilirubin Negative (NEG) Urine Urobilinogen Dipstick 0.2 mg/dL (0.2 mg/dL) Urine Leukocyte Esterase Negative (NEG) Urine RBC 3-5 /HPF (0-2) Urine WBC 0 /HPF (0-4) Urine Amorphous Sediment Present /HPF Urine Bacteria 0 /HPF (0-FEW) White Blood Count 6.2 x10^3/uL (4.0-11.0) Red Blood Count 4.16 x10^6/uL (3.50-5.40) Hemoglobin 12.2 g/dL (12.0-15.5) Hematocrit 37.2 % (36.0-47.0) Mean Corpuscular Volume 89 fL (79-100) Mean Corpuscular Hemoglobin 29 pg (25-35) Mean Corpuscular Hemoglobin Concent 33 g/dL (31-37) Red Cell Distribution Width 14.7 % (11.5-14.5) Platelet Count 199 x10^3/uL (140-400) Neutrophils (%) (Auto) 68 % (31-73) Lymphocytes (%) (Auto) 20 % (24-48) Monocytes (%) (Auto) 10 % (0-9) Eosinophils (%) (Auto) 1 % (0-3) Basophils (%) (Auto) 0 % (0-3) Neutrophils # (Auto) 4.2 x10^3/uL (1.8-7.7) Lymphocytes # (Auto) 1.3 x10^3/uL (1.0-4.8) Monocytes # (Auto) 0.6 x10^3/uL (0.0-1.1) Eosinophils # (Auto) 0.1 x10^3/uL (0.0-0.7) Basophils # (Auto) 0.0 x10^3/uL (0.0-0.2) Prothrombin Time 13.0 SEC (11.7-14.0) Prothromb Time International Ratio 1.0 (0.8-1.1) Activated Partial Thromboplast Time 46 SEC (24-38) Sodium Level 144 mmol/L (136-145) Potassium Level 3.3 mmol/L (3.5-5.1) Chloride Level 108 mmol/L (98-107) Carbon Dioxide Level 27 mmol/L (21-32) Anion Gap 9 (6-14) Blood Urea Nitrogen 19 mg/dL (7-20) Creatinine 0.7 mg/dL (0.6-1.0) Estimated GFR (Cockcroft-Gault) 79.5 BUN/Creatinine Ratio 27 (6-20) Glucose Level 76 mg/dL (70-99) Lactic Acid Level 2.8 mmol/L (0.4-2.0) Calcium Level 8.6 mg/dL (8.5-10.1) Total Bilirubin 1.2 mg/dL (0.2-1.0) Aspartate Amino Transf (AST/SGOT) 17 U/L (15-37) Alanine Aminotransferase (ALT/SGPT) 12 U/L (14-59) Alkaline Phosphatase 77 U/L (46-116) Troponin I Quantitative < 0.017 ng/mL (0.000-0.055) Total Protein 7.7 g/dL (6.4-8.2) Albumin 3.3 g/dL (3.4-5.0) Albumin/Globulin Ratio 0.8 (1.0-1.7) VTE Prophylaxis Ordered VTE Prophylaxis Devices: Yes VTE Pharmacological Prophylaxi: Yes Assessment/Plan Assessment/Plan UNwitnessed fall [facility]U ? Acute traumatic left subcapital femoral neck fracture. - CT pending MIld slow wave pattern LEgs by arterial dopplers Dementia vs language barrier SNU resident FUll code MIld cellultis, LE PLAn: Med surg [address] NPO< IVF , IV PPI for now Ortho Full code Resume home meds except ASa and nsaids until we known for sure no sx Rocephin empiric for mild leg cellulitis, can easily shift to pO Seen at ER ASa for mild PAD ALLA DILLARD MD Jun 07, 2019 11:51
[2019-06-07] MEDS: PANTOPRAZOLE IV PUSH 40 MG VIAL. IVP SCH (12:30)
--- NOTE | 2019-06-07 13:48 | RAD ---
Noncontrast CT scan of the pelvis without comparison for left hip fracture. TECHNIQUE: Contiguous helical 3 mm axial images are obtained from the iliac crest to the pelvic floor. No IV contrast was administered. FINDINGS: There is an incompletely visualized infrarenal abdominal aortic aneurysm with an associated dissection which is age indeterminate. There is a small hypodense lesion at the inferior pole of the right kidney which likely represents a Bosniak 2 hyperdense cyst but is incompletely characterized as well. Extensive atherosclerotic changes are seen involving the iliofemoral arteries, there is likely moderate to severe stenosis of both common iliac arteries, worse on the left than the right. The urinary bladder is fluid distended but grossly unremarkable, though somewhat limited by lack of contrast administration. Uterus is present. No pelvic or adnexal masses are identified. No free fluid is seen. There are mild degenerative changes of the spine and hips. No definite fracture or acute osseous normality is identified. With regard to the left femur, there is some very subtle trabecular distortion in the subcapital region, which could relate to bone contusion, or may be spurious. If there is strong clinical concern for bone contusion or fracture involving the left hip, further evaluation with MRI should be considered. IMPRESSION: 1. No definite fracture or acute osseous abnormality involving the left hip. Very subtle trabecular distortion may be present in the subcapital region and could indicate bone contusion, though this could be spurious. Consider further evaluation with MRI if there are strong clinical concern for a left hip fracture. 2. Incompletely evaluated infrarenal abdominal aortic aneurysm, with associated age-indeterminate dissection. Consider further valuation with CTA or conventional angiography. 3. Severe aortoiliac atherosclerosis, with bilateral moderate to severe iliac stenoses, greater on the left than the right. 4. Incompletely evaluated hypodense abnormality involving the right inferior renal pole, likely a Bosniak 2 cyst. Consider further evaluation with contrast-enhanced CT scan or renal ultrasound. PQRS Compliance Statement: One or more of the following individualized dose reduction techniques were utilized for this examination: 1. Automated exposure control 2. Adjustment of the mA and/or kV according to patient size 3. Use of iterative reconstruction technique Electronically signed by: Ashu Murcia MD (06/07/2019 1:45 PM) [id number]
[2019-06-07] MEDS: ACETAMINOPHEN 500 MG TABLET PO SCH ×2 (14:00→21:09)
[2019-06-07 19:00] VITALS: BP 131/69
[2019-06-07] MEDS: HALOPERIDOL 2 MG TABLET. PO SCH (21:00)
[2019-06-07] MEDS: ATORVASTATIN CALCIUM 10 MG TABLET. PO SCH (21:09)
[2019-06-07] MEDS: LACTOBACILLUS RHAMNOSUS GG 1 CAPSULE. PO SCH (21:09)
[2019-06-07 23:00] VITALS: BP 111/58
[2019-06-07] MEDS ORDERED: IV 1/2 NORMAL SALINE 1,000 ML IV SCH (23:00)
[2019-06-08 03:00] VITALS: BP 112/53
[2019-06-08] MEDS: PANTOPRAZOLE IV PUSH 40 MG VIAL. IVP SCH (05:31)
[2019-06-08] MEDS: IPRATRPIUM/ALBUTEROL 0.5/2.5MG 3 ML NEBU. NEB SCH ×4 (06:53→20:00)
[2019-06-08] MEDS: BUDESONIDE 0.5 MG/2 ML NEBU. NEB SCH ×2 (06:53→20:00)
[2019-06-08 07:00] VITALS: BP 141/72
[2019-06-08] MEDS ORDERED: HYDROmorphone 2 MG/ML VIAL IV PRN (07:00)
[2019-06-08] MEDS ORDERED: IV RINGERS,LACTATED 1000ML 1,000 ML IV SCH (07:00)
[2019-06-08] MEDS ORDERED: MORPHINE SULFATE 2 MG/ML VIAL. IV PRN (07:00)
[2019-06-08] MEDS ORDERED: PROCHLORPERAZINE 10 MG/2 ML VIAL. IV PRN (07:00)
[2019-06-08] MEDS ORDERED: fentaNYL PF VIAL 100 MCG/2 ML VIAL IV PRN ×2 (07:00)
--- NOTE | 2019-06-08 07:40 | RAD ---
EXAM: MRI PELVIS WITHOUT CONTRAST DATE: 06/07/2019 2:08 PM CLINICAL INDICATION: Right hip pain, clinical suspicion for fracture COMPARISON: CT 06/07/2019. TECHNIQUE: Multiplanar, multisequence MR imaging of the pelvis was performed without IV contrast. FINDINGS: Large [id number] evaluation of the entire pelvis limits evaluation for fine detail. Within these constraints: Diffuse marrow edema within the right S3 and S4 sacral ala with associated underlying heterogeneous and linear T1 hypointense signal is consistent with nondisplaced fracture. Mild edema is seen within the right greater than left iliacus muscle/fossa likely low-grade strain. In general, tendinous insertions of the iliopsoas, gluteus medius and minimus are intact. Mild left trochanteric bursal fluid likely bursitis. Moderate thickening and increased signal at the left hamstring origin, moderate tendinosis. Degenerative changes of the lumbar spine are seen particularly at L5-S1. On this large baxnx-fr-heyn evaluation the pelvis, no pelvic mass, lymphadenopathy or ascites. IMPRESSION: 1. Nondisplaced right sacral insufficiency fracture. 2. Low-grade strain, bilateral iliacus muscle bellies. 3. Moderate tendinosis left hamstring origin. 4. Left trochanteric bursal fluid likely bursitis. Findings of nondisplaced right sacral insufficiency fracture was discussed with patient's nurse Thu at 7:34 AM 06/08/2019 Electronically signed by: John Mercer MD (06/08/2019 7:37 AM) [facility] [place]
[2019-06-08] MEDS ORDERED: POTASSIUM CHLORIDE 20 MEQ TABLET.ER. PO SCH (08:00)
[2019-06-08] MEDS ORDERED: MORPHINE SULFATE 5 MG, KETOROLAC 30MG VIAL 30 MG, ROPIVacaine 0.5% PF 60 ML, EPINEPHrin... INT ART ONE ×5 (08:00)
[2019-06-08] MEDS: LACTOBACILLUS RHAMNOSUS GG 1 CAPSULE. PO SCH ×2 (08:26→21:00)
[2019-06-08] MEDS: ACETAMINOPHEN 500 MG TABLET PO SCH ×3 (08:27→21:00)
[2019-06-08] MEDS: QUEtiapine 50 MG TAB.ER.24H. PO SCH (08:27)
[2019-06-08] MEDS: LISINOPRIL 10 MG TABLET PO SCH (08:27)
[2019-06-08] MEDS: CHOLECALCIFEROL (VITAMIN D3) 1,000 UNIT TABLET PO SCH (08:27)
--- NOTE | 2019-06-08 08:53 | PDOC2 ---
CONSULT Date of Consult Date of Consult DATE: 06/08/19 TIME: 08:49 Reason for Consult Reason for Consult: hip pain Referring Physician Referring Physician: Yamileth Identification/Chief Complaint Chief Complaint No complaints of pain this morning Source Source: Caregiver, Chart review, Patient History of Present Illness Reason for Visit: Patient is a pleasant 84-year-old female who normally walks a little bit and is accompanied by her son. She lives in a halfway. He tells me that she had a fall yesterday and was complaining of hip pain and inability to ambulate. This morning, the patient tells me that she isn't having any pain around her hips. She denies any hip pain in the past as well. Past Medical History Cardiovascular: HTN, Hyperlipidemia Pulmonary: No pertinent hx GI: No pertinent hx Heme/Onc: No pertinent hx Hepatobiliary: No pertinent hx Psych: Psychosis Rheumatologic: No pertinent hx Infectious disease: No pertinent hx Renal/: No pertinent hx Endocrine: No pertinent hx Past Surgical History Past Surgical History: No pertinent history Family History Family History: High Cholestrol, Hypertension Social History No ALCOHOL: none Drugs: None Lives: [facility] Current Problem List Problem List Problems Medical Problems: (1) Closed left hip fracture Status: Acute (2) Fall Status: Acute (3) 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 Status: Acute Current Medications Current Medications Current Medications Clonidine HCl (Catapres) 0.1 mg PRN Q1HR PRN PO HYPERTENSION; Start 06/07/19 at 11:15 Acetaminophen (Tylenol) 500 mg TID PO Last administered on 06/07/19at 21:09; Start 06/07/19 at 14:00 Budesonide (Pulmicort) 0.5 mg RTBID NEB Last administered on 06/08/19at 06:53; Start 06/07/19 at 12:00 Cetirizine HCl (ZyrTEC) 10 mg PRN DAILY PRN PO ALLERGIES; Start 06/07/19 at 11:15 Vitamin D (Vitamin D3) 1,000 unit DAILY PO ; Start 06/08/19 at 09:00 Albuterol/ Ipratropium (Duoneb) 3 ml RTQID NEB Last administered on 06/08/19at 06:53; Start 06/07/19 at 12:00 Lactobacillus Rhamnosus (Culturelle) 1 cap BID PO Last administered on 06/07/19at 21:09; Start 06/07/19 at 21:00 Lisinopril (Prinivil) 10 mg DAILY PO ; Start 06/08/19 at 09:00 Potassium Chloride (Klor-Con) 20 meq DAILYWBKFT PO ; Start 06/08/19 at 08:00 Quetiapine Fumarate (SEROquel XR) 50 mg DAILY PO ; Start 06/08/19 at 09:00 Haloperidol (Haldol) 1 mg QHS PO Last administered on 06/07/19at 21:00; Start 06/07/19 at 21:00 Atorvastatin Calcium (Lipitor) 5 mg QHS PO Last administered on 06/07/19at 21:09; Start 06/07/19 at 21:00 Ondansetron HCl (Zofran) 4 mg PRN Q6HRS PRN IVP NAUSEA/VOMITING; Start 06/07/19 at 11:15 Acetaminophen/ Hydrocodone Bitart (Lortab 5/325) 1 tab PRN Q4HRS PRN PO PAIN; Start 06/07/19 at 11:15 Morphine Sulfate (Morphine Sulfate) 2 mg PRN Q2HR PRN IV PAIN; Start 06/07/19 at 11:15 Temazepam (Restoril) 7.5 mg PRN QHS PRN PO INSOMNIA; Start 06/07/19 at 11:15 Calcium Carbonate/ Glycine (Tums) 500 mg PRN AFTMEALHC PRN PO INDIGESTION; Start 06/07/19 at 11:15 Pantoprazole Sodium (PROTONIX VIAL for IV PUSH) 40 mg DAILYAC IVP Last administered on 06/08/19at 05:31; Start 06/07/19 at 12:30 Sodium Chloride 1,000 ml @ 75 mls/hr [id number] IV ; Start 06/07/19 at 23:00; Stop 06/08/19 at 08:22; Status DC Fentanyl Citrate (Fentanyl 2ml Vial) 25 mcg PRN Q5MIN PRN IV MILD PAIN 1-3; Start 06/08/19 at 07:00; Stop 06/09/19 at 06:59 Fentanyl Citrate (Fentanyl 2ml Vial) 50 mcg PRN Q5MIN PRN IV MODERATE TO SEVERE PAIN; Start 06/08/19 at 07:00; Stop 06/09/19 at 06:59 Morphine Sulfate (Morphine Sulfate) 1 mg PRN Q10MIN PRN IV SEVERE PAIN 7-10; Start 06/08/19 at 07:00; Stop 06/09/19 at 06:59 Ringer's Solution 1,000 ml @ 30 mls/hr Q24H IV ; Start 06/08/19 at 07:00; Stop 06/08/19 at 18:59 Hydromorphone HCl (Dilaudid) 0.5 mg PRN Q10MIN PRN IV SEV PAIN, Second choice; Start 06/08/19 at 07:00; Stop 06/09/19 at 06:59 Prochlorperazine Edisylate (Compazine) 5 mg PACU PRN PRN IV NAUSEA, MRX1; Start 06/08/19 at 07:00; Stop 06/09/19 at 06:59 Morphine Sulfate 5 mg/Ketorolac Tromethamine 30 mg/Ropivacaine 60 ml/Epinephrine HCl 0.5 mg/Sodium Chloride 100 ml @ 100 mls/hr 1X ONCE INT ART ; Start 06/08/19 at 08:00; Stop 06/08/19 at 08:59 Active Scripts Active Quetiapine Fumarate ER (Quetiapine Fumarate) 50 Mg Tab.er.24h 50 Mg PO DAILY 14 Days Klor-Con M20 (Potassium Chloride) 20 Meq Tab.er.prt 20 Meq PO DAILYWBKFT 10 Days Culturelle (Lactobacillus Rhamnosus Gg) 1 Each Cap.sprink 1 Cap PO BID 30 Days Budesonide 0.5 Mg/2 Ml Ampul.neb 0.5 Mg NEB RTBID 14 Days Duoneb 0.5-3(2.5) Mg/3 Ml (Albuterol/Ipratropium) 3 Ml Ampul.neb 3 Ml NEB RTQID 14 Days Doxycycline Hyclate 100 Mg Tablet 100 Mg PO BID 10 Days Reported Ibuprofen 400 Mg Tablet 400 Mg PO PRN Q8HRS PRN Haloperidol 1 Mg Tablet 1 Mg PO QHS Vitamin D3 (Cholecalciferol (Vitamin D3)) 1,000 Unit Tablet 1 Tab PO DAILY Zyrtec (Cetirizine Hcl) 10 Mg Tablet 1 Tab PO PRN DAILY PRN Acetaminophen 500 Mg Tablet 1 Tab PO TID Pravastatin Sodium 20 Mg Tablet 1 Tab PO DAILY Lisinopril 10 Mg Tablet 1 Tab PO DAILY Aspirin 81 Mg Tab.chew 1 Tab PO DAILY Allergies Allergies: Coded Allergies: No Known Drug Allergies (Unverified , 11/15/18) ROS General: No: Chills, Night Sweats, Fatigue, Malaise, Appetite, Other PSYCHOLOGICAL ROS: No: Anxiety, Behavioral Disorder, Concentration difficultie, Decreased libido, Depression, Disorientation, Hallucinations, Hostility, Irritablity, Memory difficulties, Mood Swings, Obsessive thoughts, Physical abuse, Sexual abuse, Sleep disturbances, Suicidal ideation, Other Eyes: No Blurry vision, No Decreased vision, No Double vision, No Dry eyes, No Excessive tearing, No Eye Pain, No Itchy Eyes, No Loss of vision, No Photophobia, No Scotomata, No Uses contacts, No Uses glasses, No Other HEENT: No: Heacaches, Visual Changes, Hearing change, Nasal congestion, Nasal discharge, Oral lesions, Sinus pain, Sore Throat, Epistaxis, Sneezing, Snoring, Tinnitus, Vertigo, Vocal changes, Other ALLERGY AND IMMUNOLOGY: No: Hives, Insect Bite Sensitivity, Itchy/Watery Eyes, Nasal Congestion, Post Nasal Drip, Seasonal Allergies, Other Hematological and Lymphatic: No: Bleeding Problems, Blood Clots, Blood Transfusions, Brusing, Night Sweats, Pallor, Swollen Lymph Nodes, Other ENDOCRINE: No: Breast Changes, Galactorrhea, Hair Pattern Changes, Hot Flashes, Malaise/lethargy, Mood Swings, Palpitations, Polydipsia/polyuria, Skin Changes, Temperature Intolerance, Unexpected Weight Changes, Other Respiratory: No: Cough, Hemoptysis, Orthopnea, Pleuritic Pain, Shortness of breath, SOB with excertion, Sputum Changes, Stridor, Tachypnea, Wheezing, Other Cardiovascular: No Chest Pain, No Palpitations, No Orthopnea, No Paroxysmal Noc. Dyspnea, No Edema, No Lt Headedness, No Other Gastrointestinal: No Nausea, No Vomiting, No Abdominal Pain, No Diarrhea, No Constipation, No Melena, No Hematochezia, No Other Genitourinary: No Dysuria, No Frequency, No Incontinence, No Hematuria, No Retention, No Discharge, No Urgency, No Pain, No Flank Pain, No Other, No , No , No , No , No , No , No Musculoskeletal: No Gait Disturbance, No Joint Pain, No Joint Stiffness, No Joint Swelling, No Muscle Pain, No Muscular Weakness, No Pain In:, No Swelling In:, No Other Neurological: No Behavorial Changes, No Bowel/Bladder ControlChng, No Confusion, No Dizziness, No Gait Disturbance, No Headaches, No Impaired Coord /balance, No Memory Loss, No Numbness/Tingling, No Seizures, No Speech Problems, No Tremors, No Visual Changes, No Weakness, No Other Skin: No Dry Skin, No Eczema, No Hair Changes, No Lumps, No Mole Changes, No Mottling, No Nail Changes, No Pruritus, No Rash, No Skin Lesion Changes, No Other, No Acne Physical Exam General: Alert, Oriented X3 HEENT: Atraumatic, EOMI Lungs: Other (respirations are unlabored with symmetric chest rise) Heart: Regular rate Abdomen: Soft, No tenderness Extremities: No edema, Other (weak pulses distally) Neuro: Strength at 5/5 X4 ext, Sensation intact Psych/Mental Status: Mental status NL, Mood NL MUSCULOSKELETAL: Other (no pain with passive range of motion at her hips knees or ankles. No pain with axial loading of either leg. No gross deformity.) Vitals VITALS Vital Signs Date Time Temp Pulse Resp B/P (MAP) Pulse Ox O2 Delivery O2 Flow Rate FiO2 06/08/19 07:00 97.4 53 16 141/72 (95) 98 Room Air 97.4 Labs Labs Laboratory Tests Test 06/07/19 09:26 06/07/19 10:50 06/07/19 14:10 Urine Collection Type U cath Urine Color Yellow Urine Clarity Clear Urine pH 5.5 Urine Specific [place] 1.020 Urine Protein Negative mg/dL (NEG-TRACE) Urine Glucose (UA) Negative mg/dL (NEG) Urine Ketones (Stick) Negative mg/dL (NEG) Urine Blood Moderate (NEG) Urine Nitrite Negative (NEG) Urine Bilirubin Negative (NEG) Urine Urobilinogen Dipstick 0.2 mg/dL (0.2 mg/dL) Urine Leukocyte Esterase Negative (NEG) Urine RBC 3-5 /HPF (0-2) Urine WBC 0 /HPF (0-4) Urine Amorphous Sediment Present /HPF Urine Bacteria 0 /HPF (0-FEW) White Blood Count 6.2 x10^3/uL (4.0-11.0) Red Blood Count 4.16 x10^6/uL (3.50-5.40) Hemoglobin 12.2 g/dL (12.0-15.5) Hematocrit 37.2 % (36.0-47.0) Mean Corpuscular Volume 89 fL (79-100) Mean Corpuscular Hemoglobin 29 pg (25-35) Mean Corpuscular Hemoglobin Concent 33 g/dL (31-37) Red Cell Distribution Width 14.7 % (11.5-14.5) Platelet Count 199 x10^3/uL (140-400) Neutrophils (%) (Auto) 68 % (31-73) Lymphocytes (%) (Auto) 20 % (24-48) Monocytes (%) (Auto) 10 % (0-9) Eosinophils (%) (Auto) 1 % (0-3) Basophils (%) (Auto) 0 % (0-3) Neutrophils # (Auto) 4.2 x10^3/uL (1.8-7.7) Lymphocytes # (Auto) 1.3 x10^3/uL (1.0-4.8) Monocytes # (Auto) 0.6 x10^3/uL (0.0-1.1) Eosinophils # (Auto) 0.1 x10^3/uL (0.0-0.7) Basophils # (Auto) 0.0 x10^3/uL (0.0-0.2) Prothrombin Time 13.0 SEC (11.7-14.0) Prothromb Time International Ratio 1.0 (0.8-1.1) Activated Partial Thromboplast Time 46 SEC (24-38) Sodium Level 144 mmol/L (136-145) Potassium Level 3.3 mmol/L (3.5-5.1) Chloride Level 108 mmol/L (98-107) Carbon Dioxide Level 27 mmol/L (21-32) Anion Gap 9 (6-14) Blood Urea Nitrogen 19 mg/dL (7-20) Creatinine 0.7 mg/dL (0.6-1.0) Estimated GFR (Cockcroft-Gault) 79.5 BUN/Creatinine Ratio 27 (6-20) Glucose Level 76 mg/dL (70-99) Lactic Acid Level 2.8 mmol/L (0.4-2.0) 1.4 mmol/L (0.4-2.0) Calcium Level 8.6 mg/dL (8.5-10.1) Total Bilirubin 1.2 mg/dL (0.2-1.0) Aspartate Amino Transf (AST/SGOT) 17 U/L (15-37) Alanine Aminotransferase (ALT/SGPT) 12 U/L (14-59) Alkaline Phosphatase 77 U/L (46-116) Troponin I Quantitative < 0.017 ng/mL (0.000-0.055) Total Protein 7.7 g/dL (6.4-8.2) Albumin 3.3 g/dL (3.4-5.0) Albumin/Globulin Ratio 0.8 (1.0-1.7) 25-Hydroxy Vitamin D Total 19.9 ng/mL (30-100) Laboratory Tests Test 06/07/19 09:26 06/07/19 10:50 06/07/19 14:10 Urine Collection Type U cath Urine Color Yellow Urine Clarity Clear Urine pH 5.5 Urine Specific [place] 1.020 Urine Protein Negative mg/dL (NEG-TRACE) Urine Glucose (UA) Negative mg/dL (NEG) Urine Ketones (Stick) Negative mg/dL (NEG) Urine Blood Moderate (NEG) Urine Nitrite Negative (NEG) Urine Bilirubin Negative (NEG) Urine Urobilinogen Dipstick 0.2 mg/dL (0.2 mg/dL) Urine Leukocyte Esterase Negative (NEG) Urine RBC 3-5 /HPF (0-2) Urine WBC 0 /HPF (0-4) Urine Amorphous Sediment Present /HPF Urine Bacteria 0 /HPF (0-FEW) White Blood Count 6.2 x10^3/uL (4.0-11.0) Red Blood Count 4.16 x10^6/uL (3.50-5.40) Hemoglobin 12.2 g/dL (12.0-15.5) Hematocrit 37.2 % (36.0-47.0) Mean Corpuscular Volume 89 fL (79-100) Mean Corpuscular Hemoglobin 29 pg (25-35) Mean Corpuscular Hemoglobin Concent 33 g/dL (31-37) Red Cell Distribution Width 14.7 % (11.5-14.5) Platelet Count 199 x10^3/uL (140-400) Neutrophils (%) (Auto) 68 % (31-73) Lymphocytes (%) (Auto) 20 % (24-48) Monocytes (%) (Auto) 10 % (0-9) Eosinophils (%) (Auto) 1 % (0-3) Basophils (%) (Auto) 0 % (0-3) Neutrophils # (Auto) 4.2 x10^3/uL (1.8-7.7) Lymphocytes # (Auto) 1.3 x10^3/uL (1.0-4.8) Monocytes # (Auto) 0.6 x10^3/uL (0.0-1.1) Eosinophils # (Auto) 0.1 x10^3/uL (0.0-0.7) Basophils # (Auto) 0.0 x10^3/uL (0.0-0.2) Prothrombin Time 13.0 SEC (11.7-14.0) Prothromb Time International Ratio 1.0 (0.8-1.1) Activated Partial Thromboplast Time 46 SEC (24-38) Sodium Level 144 mmol/L (136-145) Potassium Level 3.3 mmol/L (3.5-5.1) Chloride Level 108 mmol/L (98-107) Carbon Dioxide Level 27 mmol/L (21-32) Anion Gap 9 (6-14) Blood Urea Nitrogen 19 mg/dL (7-20) Creatinine 0.7 mg/dL (0.6-1.0) Estimated GFR (Cockcroft-Gault) 79.5 BUN/Creatinine Ratio 27 (6-20) Glucose Level 76 mg/dL (70-99) Lactic Acid Level 2.8 mmol/L (0.4-2.0) 1.4 mmol/L (0.4-2.0) Calcium Level 8.6 mg/dL (8.5-10.1) Total Bilirubin 1.2 mg/dL (0.2-1.0) Aspartate Amino Transf (AST/SGOT) 17 U/L (15-37) Alanine Aminotransferase (ALT/SGPT) 12 U/L (14-59) Alkaline Phosphatase 77 U/L (46-116) Troponin I Quantitative < 0.017 ng/mL (0.000-0.055) Total Protein 7.7 g/dL (6.4-8.2) Albumin 3.3 g/dL (3.4-5.0) Albumin/Globulin Ratio 0.8 (1.0-1.7) 25-Hydroxy Vitamin D Total 19.9 ng/mL (30-100) Images Images X-rays and advanced imaging were interpreted by myself. Report was reviewed as well per G has a sacral insufficiency fracture on the right Assessment/Plan Assessment/Plan She is not complaining of any pain. The MRI showed a sacral insufficiency fracture and some soft tissue findings as well. No need for operative intervention. She can be transferred back to the halfway when we can get that coordinated. Okay to weight-bear as tolerated with an assistive device for my standpoint. NAKUL GREER II, MD Jun 08, 2019 08:52
--- NOTE | 2019-06-08 10:54 | NUR ---
[facility] following for discharge planning. Discussed with RN, per RN, pt is from [facility]. [facility] contacted [facility] ([phone]) and left voicemail requesting call back to confirm. Pt has non surgical fracture. Possibility of discharging today per RN. [facility] will continue to follow. Addendum: 06/08/19 at 1504 by TYRONE RIBEIRO [facility] following. [facility] confirmed pt is from [facility], but was unable to speak with anyone regarding pt returning when ready. [facility] left voicemail, however did not receive call back. [facility] notified pt RN if pt is ready to discharge tomorrow, please call [facility] ([phone]) to have them collect their resident.
[2019-06-08 11:00] VITALS: BP 103/87
--- NOTE | 2019-06-08 11:06 | PDOC ---
PROGRESS NOTES History of Present Illness History of Present Illness VTE Prophylaxis Ordered VTE Prophylaxis Devices: Yes VTE Pharmacological Prophylaxi: Yes Assessment/Plan frequent falls UNwitnessed fall SNU .Acute traumatic left subcapital femoral neck fracture. - CT reviewed arterial dopplers c/w Monophasic waveforms in all calf arteries except the anterior tibial artery suggests flow-limiting stenosis in the proximal calf. Nondisplaced right sacral insufficiency fracture. MRI showed sacral insufficiency fracture and some soft tissue findings as well. No need for operative intervention Dementia SNU resident FUll code cellultis, LE Incompletely evaluated infrarenal abdominal aortic aneurysm, with associated age-indeterminate dissection. Consider further valuation with CTA or conventional angiography. Severe aortoiliac atherosclerosis, with bilateral moderate to severe iliac stenoses, greater on the left than the right. Hyperlipidemia - cont statin Hypertension - BP control hx Stroke - cont ASA and statin PLAn: Med surg 2 MN IVF , IV PPI for now Ortho Full code Resume home meds except ASa and nsaids until we known for sure no sx Rocephin iv empiric for leg cellulitis, vascular surgery consult PAD dvt prophylaxis 38 min pt exam, chart review, > 50% of time spent with exam, chart review, pt care coordination Vitals Vitals Vital Signs Date Time Temp Pulse Resp B/P (MAP) Pulse Ox O2 Delivery O2 Flow Rate FiO2 06/08/19 08:00 Room Air 06/08/19 07:00 97.4 53 16 141/72 (95) 98 97.4 Physical Exam General: Alert, Oriented X3, Cooperative, No acute distress Heart: Regular rate Lungs: Clear Abdomen: Normal bowel sounds, Soft, No tenderness Extremities: No cyanosis, No edema, Other Skin: No breakdown, Other (both lower legs red, c/w cellulitis r> left) Labs LABS PATIENT: LILLIAM KHANNA ACCOUNT: [id number] : 1935 LOCATION: [facility] AGE: 84 SEX: F EXAM STATUS: ADM IN ORD. PHYSICIAN: ANGELITA SAEED APRN REASON: L hip fx PROCEDURE: CT PELVIS WO CONTRAST Noncontrast CT scan of the pelvis without comparison for left hip fracture. TECHNIQUE: Contiguous helical 3 mm axial images are obtained from the iliac crest to the pelvic floor. No IV contrast was administered. FINDINGS: There is an incompletely visualized infrarenal abdominal aortic aneurysm with an associated dissection which is age indeterminate. There is a small hypodense lesion at the inferior pole of the right kidney which likely represents a Bosniak 2 hyperdense cyst but is incompletely characterized as well. Extensive atherosclerotic changes are seen involving the iliofemoral arteries, there is likely moderate to severe stenosis of both common iliac arteries, worse on the left than the right. The urinary bladder is fluid distended but grossly unremarkable, though somewhat limited by lack of contrast administration. Uterus is present. No pelvic or adnexal masses are identified. No free fluid is seen. There are mild degenerative changes of the spine and hips. No definite fracture or acute osseous normality is identified. With regard to the left femur, there is some very subtle trabecular distortion in the subcapital region, which could relate to bone contusion, or may be spurious. If there is strong clinical concern for bone contusion or fracture involving the left hip, further evaluation with MRI should be considered. IMPRESSION: 1. No definite fracture or acute osseous abnormality involving the left hip. Very subtle trabecular distortion may be present in the subcapital region and could indicate bone contusion, though this could be spurious. Consider further evaluation with MRI if there are strong clinical concern for a left hip fracture. 2. Incompletely evaluated infrarenal abdominal aortic aneurysm, with associated age-indeterminate dissection. Consider further valuation with CTA or conventional angiography. 3. Severe aortoiliac atherosclerosis, with bilateral moderate to severe iliac stenoses, greater on the left than the right. 4. Incompletely evaluated hypodense abnormality involving the right inferior renal pole, likely a Bosniak 2 cyst. Consider further evaluation with contrast-enhanced CT scan or renal ultrasound. dATE: 06/07/2019 2:08 PM CLINICAL INDICATION: Right hip pain, clinical suspicion for fracture COMPARISON: CT 06/07/2019. TECHNIQUE: Multiplanar, multisequence MR imaging of the pelvis was performed without IV contrast. FINDINGS: Large [id number] evaluation of the entire pelvis limits evaluation for fine detail. Within these constraints: Diffuse marrow edema within the right S3 and S4 sacral ala with associated underlying heterogeneous and linear T1 hypointense signal is consistent with nondisplaced fracture. Mild edema is seen within the right greater than left iliacus muscle/fossa likely low-grade strain. In general, tendinous insertions of the iliopsoas, gluteus medius and minimus are intact. Mild left trochanteric bursal fluid likely bursitis. Moderate thickening and increased signal at the left hamstring origin, moderate tendinosis. Degenerative changes of the lumbar spine are seen particularly at L5-S1. On this large [id number]-fj-fejf evaluation the pelvis, no pelvic mass, lymphadenopathy or ascites. IMPRESSION: 1. Nondisplaced right sacral insufficiency fracture. 2. Low-grade strain, bilateral iliacus muscle bellies. 3. Moderate tendinosis left hamstring origin. 4. Left trochanteric bursal fluid likely bursitis. Findings of nondisplaced right sacral insufficiency fracture was discussed with patient's nurse Thu at 7:34 AM 06/08/2019 Electronically signed by: John Mercer MD (06/08/2019 7:37 AM) [facility] Right LOWER EXTREMITY DUPLEX ARTERY ULTRASOUND Indication: Right lower extremity redness, pain, decreased pulses. Comparison: None. Procedure: Real-time grayscale, color flow Doppler, and Doppler spectral waveform analysis of the arterial system of the lower extremity is performed. Findings: Atherosclerotic calcifications are noted. No arterial occlusion is seen. Waveforms in the common femoral, profunda, superficial femoral, and popliteal arteries are triphasic. Anterior tibial artery waveform is biphasic. Monophasic waveforms in the posterior tibial, peroneal, and dorsalis pedis arteries suggest there is flow limiting stenosis in the proximal calf. No focal elevated peak systolic velocity is identified. IMPRESSION: Monophasic waveforms in all calf arteries except the anterior tibial artery suggests flow-limiting stenosis in the proximal calf. 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 Labs Laboratory Tests Test 06/07/19 09:26 06/07/19 10:50 06/07/19 14:10 Urine Collection Type U cath Urine Color Yellow Urine Clarity Clear Urine pH 5.5 Urine Specific [place] 1.020 Urine Protein Negative mg/dL (NEG-TRACE) Urine Glucose (UA) Negative mg/dL (NEG) Urine Ketones (Stick) Negative mg/dL (NEG) Urine Blood Moderate (NEG) Urine Nitrite Negative (NEG) Urine Bilirubin Negative (NEG) Urine Urobilinogen Dipstick 0.2 mg/dL (0.2 mg/dL) Urine Leukocyte Esterase Negative (NEG) Urine RBC 3-5 /HPF (0-2) Urine WBC 0 /HPF (0-4) Urine Amorphous Sediment Present /HPF Urine Bacteria 0 /HPF (0-FEW) White Blood Count 6.2 x10^3/uL (4.0-11.0) Red Blood Count 4.16 x10^6/uL (3.50-5.40) Hemoglobin 12.2 g/dL (12.0-15.5) Hematocrit 37.2 % (36.0-47.0) Mean Corpuscular Volume 89 fL (79-100) Mean Corpuscular Hemoglobin 29 pg (25-35) Mean Corpuscular Hemoglobin Concent 33 g/dL (31-37) Red Cell Distribution Width 14.7 % (11.5-14.5) Platelet Count 199 x10^3/uL (140-400) Neutrophils (%) (Auto) 68 % (31-73) Lymphocytes (%) (Auto) 20 % (24-48) Monocytes (%) (Auto) 10 % (0-9) Eosinophils (%) (Auto) 1 % (0-3) Basophils (%) (Auto) 0 % (0-3) Neutrophils # (Auto) 4.2 x10^3/uL (1.8-7.7) Lymphocytes # (Auto) 1.3 x10^3/uL (1.0-4.8) Monocytes # (Auto) 0.6 x10^3/uL (0.0-1.1) Eosinophils # (Auto) 0.1 x10^3/uL (0.0-0.7) Basophils # (Auto) 0.0 x10^3/uL (0.0-0.2) Prothrombin Time 13.0 SEC (11.7-14.0) Prothromb Time International Ratio 1.0 (0.8-1.1) Activated Partial Thromboplast Time 46 SEC (24-38) Sodium Level 144 mmol/L (136-145) Potassium Level 3.3 mmol/L (3.5-5.1) Chloride Level 108 mmol/L (98-107) Carbon Dioxide Level 27 mmol/L (21-32) Anion Gap 9 (6-14) Blood Urea Nitrogen 19 mg/dL (7-20) Creatinine 0.7 mg/dL (0.6-1.0) Estimated GFR (Cockcroft-Gault) 79.5 BUN/Creatinine Ratio 27 (6-20) Glucose Level 76 mg/dL (70-99) Lactic Acid Level 2.8 mmol/L (0.4-2.0) 1.4 mmol/L (0.4-2.0) Calcium Level 8.6 mg/dL (8.5-10.1) Total Bilirubin 1.2 mg/dL (0.2-1.0) Aspartate Amino Transf (AST/SGOT) 17 U/L (15-37) Alanine Aminotransferase (ALT/SGPT) 12 U/L (14-59) Alkaline Phosphatase 77 U/L (46-116) Troponin I Quantitative < 0.017 ng/mL (0.000-0.055) Total Protein 7.7 g/dL (6.4-8.2) Albumin 3.3 g/dL (3.4-5.0) Albumin/Globulin Ratio 0.8 (1.0-1.7) 25-Hydroxy Vitamin D Total 19.9 ng/mL (30-100) Laboratory Tests Test 06/07/19 14:10 Lactic Acid Level 1.4 mmol/L (0.4-2.0) Medications Current Medications Clonidine HCl (Catapres) 0.1 mg PRN Q1HR PRN PO HYPERTENSION; Start 06/07/19 at 11:15 Acetaminophen (Tylenol) 500 mg TID PO Last administered on 06/07/19at 21:09; Start 06/07/19 at 14:00 Budesonide (Pulmicort) 0.5 mg RTBID NEB Last administered on 06/08/19at 06:53; Start 06/07/19 at 12:00 Cetirizine HCl (ZyrTEC) 10 mg PRN DAILY PRN PO ALLERGIES; Start 06/07/19 at 11:15 Vitamin D (Vitamin D3) 1,000 unit DAILY PO ; Start 06/08/19 at 09:00 Albuterol/ Ipratropium (Duoneb) 3 ml RTQID NEB Last administered on 06/08/19at 06:53; Start 06/07/19 at 12:00 Lactobacillus Rhamnosus (Culturelle) 1 cap BID PO Last administered on 06/07/19at 21:09; Start 06/07/19 at 21:00 Lisinopril (Prinivil) 10 mg DAILY PO ; Start 06/08/19 at 09:00 Potassium Chloride (Klor-Con) 20 meq DAILYWBKFT PO ; Start 06/08/19 at 08:00 Quetiapine Fumarate (SEROquel XR) 50 mg DAILY PO ; Start 06/08/19 at 09:00 Haloperidol (Haldol) 1 mg QHS PO Last administered on 06/07/19at 21:00; Start 06/07/19 at 21:00 Atorvastatin Calcium (Lipitor) 5 mg QHS PO Last administered on 06/07/19at 21:09; Start 06/07/19 at 21:00 Ondansetron HCl (Zofran) 4 mg PRN Q6HRS PRN IVP NAUSEA/VOMITING; Start 06/07/19 at 11:15 Acetaminophen/ Hydrocodone Bitart (Lortab 5/325) 1 tab PRN Q4HRS PRN PO PAIN; Start 06/07/19 at 11:15 Morphine Sulfate (Morphine Sulfate) 2 mg PRN Q2HR PRN IV PAIN; Start 06/07/19 at 11:15 Temazepam (Restoril) 7.5 mg PRN QHS PRN PO INSOMNIA; Start 06/07/19 at 11:15 Calcium Carbonate/ Glycine (Tums) 500 mg PRN AFTMEALHC PRN PO INDIGESTION; Start 06/07/19 at 11:15 Pantoprazole Sodium (PROTONIX VIAL for IV PUSH) 40 mg DAILYAC IVP Last administered on 06/08/19at 05:31; Start 06/07/19 at 12:30 Sodium Chloride 1,000 ml @ 75 mls/hr [id number] IV ; Start 06/07/19 at 23:00; Stop 06/08/19 at 08:22; Status DC Fentanyl Citrate (Fentanyl 2ml Vial) 25 mcg PRN Q5MIN PRN IV MILD PAIN 1-3; Start 06/08/19 at 07:00; Stop 06/09/19 at 06:59 Fentanyl Citrate (Fentanyl 2ml Vial) 50 mcg PRN Q5MIN PRN IV MODERATE TO SEVERE PAIN; Start 06/08/19 at 07:00; Stop 06/09/19 at 06:59 Morphine Sulfate (Morphine Sulfate) 1 mg PRN Q10MIN PRN IV SEVERE PAIN 7-10; Start 06/08/19 at 07:00; Stop 06/09/19 at 06:59 Ringer's Solution 1,000 ml @ 30 mls/hr Q24H IV ; Start 06/08/19 at 07:00; Stop 06/08/19 at 18:59 Hydromorphone HCl (Dilaudid) 0.5 mg PRN Q10MIN PRN IV SEV PAIN, Second choice; Start 06/08/19 at 07:00; Stop 06/09/19 at 06:59 Prochlorperazine Edisylate (Compazine) 5 mg PACU PRN PRN IV NAUSEA, MRX1; Start 06/08/19 at 07:00; Stop 06/09/19 at 06:59 Morphine Sulfate 5 mg/Ketorolac Tromethamine 30 mg/Ropivacaine 60 ml/Epinephrine HCl 0.5 mg/Sodium Chloride 100 ml @ 100 mls/hr 1X ONCE INT ART ; Start 06/08/19 at 08:00; Stop 06/08/19 at 08:59; Status DC Active Scripts Active Quetiapine Fumarate ER (Quetiapine Fumarate) 50 Mg Tab.er.24h 50 Mg PO DAILY 14 Days Klor-Con M20 (Potassium Chloride) 20 Meq Tab.er.prt 20 Meq PO DAILYWBKFT 10 Days Culturelle (Lactobacillus Rhamnosus Gg) 1 Each Cap.sprink 1 Cap PO BID 30 Days Budesonide 0.5 Mg/2 Ml Ampul.neb 0.5 Mg NEB RTBID 14 Days Duoneb 0.5-3(2.5) Mg/3 Ml (Albuterol/Ipratropium) 3 Ml Ampul.neb 3 Ml NEB RTQID 14 Days Doxycycline Hyclate 100 Mg Tablet 100 Mg PO BID 10 Days Reported Ibuprofen 400 Mg Tablet 400 Mg PO PRN Q8HRS PRN Haloperidol 1 Mg Tablet 1 Mg PO QHS Vitamin D3 (Cholecalciferol (Vitamin D3)) 1,000 Unit Tablet 1 Tab PO DAILY Zyrtec (Cetirizine Hcl) 10 Mg Tablet 1 Tab PO PRN DAILY PRN Acetaminophen 500 Mg Tablet 1 Tab PO TID Pravastatin Sodium 20 Mg Tablet 1 Tab PO DAILY Lisinopril 10 Mg Tablet 1 Tab PO DAILY Aspirin 81 Mg Tab.chew 1 Tab PO DAILY Vitals/I & O Vital Sign - Last 24 Hours 06/07/19 06/07/19 06/07/19 06/07/19 11:15 11:26 11:28 16:27 Pulse 76 Resp 18 Pulse Ox 95 99 99 O2 Delivery Room Air Room Air Room Air 06/07/19 06/07/19 06/07/19 06/07/19 18:43 19:00 19:56 20:00 Temp 98.4 98.4 Pulse 68 Resp 18 B/P (MAP) 131/69 (89) Pulse Ox 94 O2 Delivery Room Air Room Air Room Air Room Air 06/07/19 06/08/19 06/08/19 06/08/19 23:00 03:00 06:54 07:00 Temp 98.0 98.1 97.4 98.0 98.1 97.4 Pulse 65 65 53 Resp 18 18 16 B/P (MAP) 111/58 (75) 112/53 (72) 141/72 (95) Pulse Ox 95 95 98 98 O2 Delivery Room Air Room Air Room Air Room Air 06/08/19 08:00 O2 Delivery Room Air OG ZEE MD Jun 08, 2019 11:06
[2019-06-08] MEDS ORDERED: POTASSIUM CHLORIDE 20 MEQ TABLET.ER. PO ONE (11:45)
[2019-06-08] MEDS ORDERED: ENOXAPARIN 30 MG/0.3 ML SYRINGE. SQ SCH (12:00)
[2019-06-08] MEDS ORDERED: cefTRIAXone IV Push 1 GM VIAL. IVP SCH (12:00)
[2019-06-08] MEDS ORDERED: HALOPERIDOL LACTATE 5 MG/ML VIAL. IVP PRN (18:15)
[2019-06-08] MEDS ORDERED: ALPRAZolam 0.5 MG TABLET PO PRN (18:30)
[2019-06-08 19:00] VITALS: BP 181/81
[2019-06-08] MEDS: HALOPERIDOL 2 MG TABLET. PO SCH (21:00)
[2019-06-08] MEDS: ATORVASTATIN CALCIUM 10 MG TABLET. PO SCH (21:00)
[2019-06-09] MEDS: IPRATRPIUM/ALBUTEROL 0.5/2.5MG 3 ML NEBU. NEB SCH (07:02)
[2019-06-09] MEDS ORDERED: AMOX1TAB58 PO (07:04)
[2019-06-09] MEDS ORDERED: ALPR0.5T6 PO (07:04)
--- NOTE | 2019-06-09 07:05 | SNU/HH DC ---
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 Status: Acute CONDITION ON DISCHARGE: Stable CODE STATUS: Code Status: Full M[facility]: SNF STAY <30 DAYS: Yes HOSPICE: HOSPICE: No HOSPICE EVAL & TREAT: No LTAC: ADMIT TO LTAC: No POST DISCHARGE ORDERS: ACTIVITY ORDERS: Activity as tolerated, Progressive ambulation, Other, see below DIET AFTER DISCHARGE: Cardiac CHECKS AFTER DISCHARGE: CHECKS AFTER DISCHARGE: Check blood press - daily FOLLOW-UP: PHYSICIAN FOLLOW-UP: pcp prn TREATMENT/EQUIPMENT ORDERS: Physical Therapy For: Evalulation/Treatment Occupational Therapy For: Evaluation/Treatment Speech Language Pathology For: Evaluation/Treatment DISCHARGE MEDICATIONS: Home Meds Active Scripts Amoxicillin/Potassium Clav (AUGMENTIN 500-125 TABLET) 1 Each Tablet, 1 TAB PO BID for mild leg cellulitis for 7 Days, #14 TAB 0 Refills Prov:ALLA DILLARD MD 06/09/19 Alprazolam (ALPRAZOLAM) 0.5 Mg Tablet, 0.5 MG PO PRN Q8HRS PRN for ANXIETY / A GITATION, #20 TAB Prov:ALLA DILLARD MD 06/09/19 Quetiapine Fumarate (Quetiapine Fumarate ER) 50 Mg Tab.er.24h, 50 MG PO DAILY for BEHAVIORS for 14 Days, #14 TAB.SR Prov:OG ZEE MD 01/26/19 Potassium Chloride (KLOR-CON M20) 20 Meq Tab.er.prt, 20 MEQ PO DAILYWBKFT for SUPPLEMENT for 10 Days, #10 TAB.SR Prov:OG ZEE MD 01/26/19 Lactobacillus Rhamnosus Gg (CULTURELLE) 1 Each Cap.sprink, 1 CAP PO BID for SUPPLEMENT for 30 Days, #60 CAP Prov:OG ZEE MD 01/26/19 Budesonide (BUDESONIDE) 0.5 Mg/2 Ml Ampul.neb, 0.5 MG NEB RTBID for COUGH for 14 Days, #30 EACH Prov:OG ZEE MD 01/26/19 Ipratropium/Albuterol Sulfate (DUONEB 0.5-3(2.5) MG/3 ML) 3 Ml Ampul.neb, 3 ML NEB RTQID for COUGH for 14 Days, #56 EACH Prov:OG ZEE MD 01/26/19 Reported Medications Ibuprofen (IBUPROFEN) 400 Mg Tablet, 400 MG PO PRN Q8HRS PRN for INFLAMMATION, TAB 01/24/19 Haloperidol (HALOPERIDOL) 1 Mg Tablet, 1 MG PO QHS for BEHAVIOR, TAB 01/24/19 Cholecalciferol (Vitamin D3) (VITAMIN D3) 1,000 Unit Tablet, 1 TAB PO DAILY for supplement, #30 TAB 5 Refills 01/24/19 Cetirizine Hcl (ZYRTEC) 10 Mg Tablet, 1 TAB PO PRN DAILY PRN for ALLERGIES, #30 TAB 2 Refills 01/24/19 Acetaminophen (ACETAMINOPHEN) 500 Mg Tablet, 1 TAB PO TID for pain, #60 TAB 1 Refill 01/24/19 Pravastatin Sodium (PRAVASTATIN SODIUM) 20 Mg Tablet, 1 TAB PO DAILY for Hyperlipidemia, #30 TAB 5 Refills 11/16/18 Lisinopril (LISINOPRIL) 10 Mg Tablet, 1 TAB PO DAILY for HTN, #30 TAB 5 Refills 11/16/18 Aspirin (ASPIRIN) 81 Mg Tab.chew, 1 TAB PO DAILY for stroke, #30 TAB 3 Refills 11/16/18 Discontinued Scripts Doxycycline Hyclate (DOXYCYCLINE HYCLATE) 100 Mg Tablet, 100 MG PO BID for BRONCHITIS for 10 Days, #20 TAB Prov:OG ZEE MD 01/26/19 ALLA DILLARD MD Jun 09, 2019 07:05
[2019-06-09] MEDS ORDERED: POTASSIUM CHLORIDE 20 MEQ TABLET.ER. PO SCH (08:00)
[2019-06-09] MEDS: BUDESONIDE 0.5 MG/2 ML NEBU. NEB SCH (08:00)
--- NOTE | 2019-06-09 08:40 | PDOC3 ---
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 Status: Acute Brief Hospital Course Allergies Allergies Coded Allergies Type Severity Reaction Last Updated Verified No Known Drug Allergies 11/15/18 No Vital Signs Vital Signs Date Time Temp Pulse Resp B/P (MAP) Pulse Ox O2 Delivery O2 Flow Rate FiO2 06/08/19 20:15 Room Air 06/08/19 19:00 98.0 82 17 181/81 (114) 95 98.0 Lab Results Laboratory Tests Test 06/07/19 09:26 06/07/19 10:50 06/07/19 14:10 Urine Collection Type U cath Urine Color Yellow Urine Clarity Clear Urine pH 5.5 Urine Specific [place] 1.020 Urine Protein Negative mg/dL (NEG-TRACE) Urine Glucose (UA) Negative mg/dL (NEG) Urine Ketones (Stick) Negative mg/dL (NEG) Urine Blood Moderate (NEG) Urine Nitrite Negative (NEG) Urine Bilirubin Negative (NEG) Urine Urobilinogen Dipstick 0.2 mg/dL (0.2 mg/dL) Urine Leukocyte Esterase Negative (NEG) Urine RBC 3-5 /HPF (0-2) Urine WBC 0 /HPF (0-4) Urine Amorphous Sediment Present /HPF Urine Bacteria 0 /HPF (0-FEW) White Blood Count 6.2 x10^3/uL (4.0-11.0) Red Blood Count 4.16 x10^6/uL (3.50-5.40) Hemoglobin 12.2 g/dL (12.0-15.5) Hematocrit 37.2 % (36.0-47.0) Mean Corpuscular Volume 89 fL (79-100) Mean Corpuscular Hemoglobin 29 pg (25-35) Mean Corpuscular Hemoglobin Concent 33 g/dL (31-37) Red Cell Distribution Width 14.7 % (11.5-14.5) Platelet Count 199 x10^3/uL (140-400) Neutrophils (%) (Auto) 68 % (31-73) Lymphocytes (%) (Auto) 20 % (24-48) Monocytes (%) (Auto) 10 % (0-9) Eosinophils (%) (Auto) 1 % (0-3) Basophils (%) (Auto) 0 % (0-3) Neutrophils # (Auto) 4.2 x10^3/uL (1.8-7.7) Lymphocytes # (Auto) 1.3 x10^3/uL (1.0-4.8) Monocytes # (Auto) 0.6 x10^3/uL (0.0-1.1) Eosinophils # (Auto) 0.1 x10^3/uL (0.0-0.7) Basophils # (Auto) 0.0 x10^3/uL (0.0-0.2) Prothrombin Time 13.0 SEC (11.7-14.0) Prothromb Time International Ratio 1.0 (0.8-1.1) Activated Partial Thromboplast Time 46 SEC (24-38) Sodium Level 144 mmol/L (136-145) Potassium Level 3.3 mmol/L (3.5-5.1) Chloride Level 108 mmol/L (98-107) Carbon Dioxide Level 27 mmol/L (21-32) Anion Gap 9 (6-14) Blood Urea Nitrogen 19 mg/dL (7-20) Creatinine 0.7 mg/dL (0.6-1.0) Estimated GFR (Cockcroft-Gault) 79.5 BUN/Creatinine Ratio 27 (6-20) Glucose Level 76 mg/dL (70-99) Lactic Acid Level 2.8 mmol/L (0.4-2.0) 1.4 mmol/L (0.4-2.0) Calcium Level 8.6 mg/dL (8.5-10.1) Total Bilirubin 1.2 mg/dL (0.2-1.0) Aspartate Amino Transf (AST/SGOT) 17 U/L (15-37) Alanine Aminotransferase (ALT/SGPT) 12 U/L (14-59) Alkaline Phosphatase 77 U/L (46-116) Troponin I Quantitative < 0.017 ng/mL (0.000-0.055) Total Protein 7.7 g/dL (6.4-8.2) Albumin 3.3 g/dL (3.4-5.0) Albumin/Globulin Ratio 0.8 (1.0-1.7) 25-Hydroxy Vitamin D Total 19.9 ng/mL (30-100) Brief Hospital Course Ms. Chao is a 84 old resident who only speaks Marta, no family at bedside, she had an unwitnessed fall in SNU, initial concerns for hip fc which turned out NOT TO be the case, Some mild pacheco cellulitis that can totatally be treated with PO abx, SOme mild flow limiting wave form pattern on arterial dopplers that I have dw Ortho and is really not needing any more further vasc sx evaluatuion, She has become agitated and aggressive to staff, throwing things, MEDICALLY cleared to go back to snu with some xnax prn and po augmentin SHe is full weight bearing on that extremity \ DIspo: back to snu Proc: none COnsult: ortho - [facility] Discharge Information Condition at Discharge: Improved, Stable Disposition/Orders: Other (snu) Scheduled Acetaminophen (Acetaminophen) 500 Mg Tablet, 1 TAB PO TID for pain, #60 Ref 1 (Reported) Entered as Reported by: EVELIA LEHMAN on 01/24/191738 Last Action: Continued on 06/07/191112 by ALLA DILLARD Amoxicillin/Potassium Clav (Augmentin 500-125 Tablet) 1 Each Tablet, 1 TAB PO BID for mild leg cellulitis for 7 Days, #14 Ref 0 Prescribed by: ALLA DILLARD on 06/09/19 0704 Aspirin (Aspirin) 81 Mg Tab.chew, 1 TAB PO DAILY for stroke, #30 Ref 3 (Reported) Entered as Reported by: MERVIN GARG RN on 11/16/18 0106 Last Action: HELD on 06/07/191112 by ALLA DILLARD Budesonide (Budesonide) 0.5 Mg/2 Ml Ampul.neb, 0.5 MG NEB RTBID for COUGH for 14 Days, #30 Prescribed by: OG ZEE MD on 01/26/19 1452 Last Action: Continued on 06/07/191112 by ALLA DILLARD Cholecalciferol (Vitamin D3) (Vitamin D3) 1,000 Unit Tablet, 1 TAB PO DAILY for supplement, #30 Ref 5 (Reported) Entered as Reported by: EVELIA LEHMAN on 01/24/191738 Last Action: Continued on 06/07/191112 by ALLA DILLARD Haloperidol (Haloperidol) 1 Mg Tablet, 1 MG PO QHS for BEHAVIOR, (Reported) Entered as Reported by: EVELIA DOMINIK on 01/24/191738 Last Action: Converted on 06/07/191112 by ALLA DILLARD Ipratropium/Albuterol Sulfate (Duoneb 0.5-3(2.5) Mg/3 Ml) 3 Ml Ampul.neb, 3 ML NEB RTQID for COUGH for 14 Days, #56 Prescribed by: OG ZEE MD on 01/26/191451 Last Action: Continued on 06/07/191112 by ALLA DILLARD Lactobacillus Rhamnosus Gg (Culturelle) 1 Each Cap.sprink, 1 CAP PO BID for SUPPLEMENT for 30 Days, #60 Prescribed by: OG ZEE MD on 01/26/191451 Last Action: Continued on 06/07/191112 by ALLA DILLARD Lisinopril (Lisinopril) 10 Mg Tablet, 1 TAB PO DAILY for HTN, #30 Ref 5 (Reported) Entered as Reported by: MERVIN GARG RN on 11/16/18105 Last Action: Continued on 06/07/191112 by ALLA DILLARD Potassium Chloride (Klor-Con M20) 20 Meq Tab.er.prt, 20 MEQ PO DAILYWBKFT for SUPPLEMENT for 10 Days, #10 Prescribed by: OG ZEE MD on 01/26/191451 Last Action: Continued on 06/07/191112 by ALLA DILLARD Pravastatin Sodium (Pravastatin Sodium) 20 Mg Tablet, 1 TAB PO DAILY for Hyperlipidemia, #30 Ref 5 (Reported) Entered as Reported by: MERVIN GARG RN on 11/16/18105 Last Action: Converted on 06/07/191112 by ALLA DILLARD Quetiapine Fumarate (Quetiapine Fumarate ER) 50 Mg Tab.er.24h, 50 MG PO DAILY for BEHAVIORS for 14 Days, #14 Prescribed by: OG ZEE MD on 01/26/191451 Last Action: Continued on 06/07/191112 by ALLA DILLARD Scheduled PRN Alprazolam (Alprazolam) 0.5 Mg Tablet, 0.5 MG PO PRN Q8HRS PRN for ANXIETY / AGITATION, #20 Prescribed by: ALLA DILLARD on 06/09/19 0704 Cetirizine Hcl (Zyrtec) 10 Mg Tablet, 1 TAB PO PRN DAILY PRN for ALLERGIES, #30 Ref 2 (Reported) Entered as Reported by: EVELIA LEHMAN on 01/24/191738 Last Action: Continued on 06/07/191112 by ALLA DILLARD Ibuprofen (Ibuprofen) 400 Mg Tablet, 400 MG PO PRN Q8HRS PRN for INFLAMMATION, (Reported) Entered as Reported by: EVELIA LEHMAN on 01/24/191738 Last Action: HELD on 06/07/191112 by ALLA DILLARD Discontinued Medications Doxycycline Hyclate (Doxycycline Hyclate) 100 Mg Tablet, 100 MG PO BID for BRONCHITIS for 10 Days, #20 Prescribed by: OG ZEE MD on 01/26/19 0932 Last Action: HELD on 06/07/191112 by ALLA WEBSTER MD Jun 09, 2019 08:40
[2019-06-09] MEDS: QUEtiapine 50 MG TAB.ER.24H. PO SCH (09:00)
[2019-06-09] MEDS: CHOLECALCIFEROL (VITAMIN D3) 1,000 UNIT TABLET PO SCH (09:00)
[2019-06-09] MEDS: LISINOPRIL 10 MG TABLET PO SCH (09:00)
[2019-06-09] MEDS: ACETAMINOPHEN 500 MG TABLET PO SCH (09:00)
[2019-06-09] MEDS: LACTOBACILLUS RHAMNOSUS GG 1 CAPSULE. PO SCH (09:00)
[2019-06-09 09:41] LABS: BASO % 0 % (0-3); EOS # 0.1 x10^3/uL (0.0-0.7); EOS % 1 % (0-3); HEMATOCRIT 38.2 % (36.0-47.0); HEMOGLOBIN 12.5 g/dL (12.0-15.5); LYMPH # 1.4 x10^3/uL (1.0-4.8); LYMPH % 16 % (24-48); MEAN CORPUSCULAR HEMOGLOBIN 29 pg (25-35); MEAN CORPUSCULAR HGB CONC 33 g/dL (31-37); MEAN CORPUSCULAR VOLUME 88 fL (79-100); MONO # 0.8 x10^3/uL (0.0-1.1); MONO % 9 % (0-9); NEUT # 6.2 x10^3/uL (1.8-7.7); NEUT % 73 % (31-73); PLATELET COUNT 233 x10^3/uL (140-400); RED BLOOD COUNT 4.34 x10^6/uL (3.50-5.40); WHITE BLOOD COUNT 8.4 x10^3/uL (4.0-11.0)
[2019-06-09 10:04] LABS: CREATININE 0.6 mg/dL (0.6-1.0); POTASSIUM 3.6 mmol/L (3.5-5.1)
== END 2019-06-09 12:05 | disposition home or self-care (01) | DRG 543 ==
LOC: ER 09:14 → 4 NORTH 11:11
PROVIDERS: ADMIT Internal Medicine; ATTEND Internal Medicine
DX: M84.48XA Pathological fracture, other site, initial encounter for fracture (principal); I69.351 Hemiplegia and hemiparesis following cerebral infarction affecting right dominant side; L03.119 Cellulitis of unspecified part of limb; E78.00 Pure hypercholesterolemia, unspecified; E78.5 Hyperlipidemia, unspecified; F03.90 Unspecified dementia, unspecified severity, without behavioral disturbance, psychotic disturbance, mood disturbance, and anxiety; I10 Essential (primary) hypertension; M19.90 Unspecified osteoarthritis, unspecified site; E55.9 Vitamin D deficiency, unspecified; W18.39XA Other fall on same level, initial encounter; R29.6 Repeated falls; Z79.899 Other long term (current) drug therapy; Z79.82 Long term (current) use of aspirin; Y93.89 Activity, other specified; Y92.89 Other specified places as the place of occurrence of the external cause; Y99.8 Other external cause status
CPT/HCPCS: 36415; 71045; 72170; 72192; 72195; 80048; 80053; 81001; 82306; 83605; 84484; 85025; 85610; 85730; 93005; 93926; 94640; 94760; C9113; J7620; J7626; 99285-25; G0378

== ENCOUNTER 2019-06-25 14:15 | Emergency (ER) | payer MEDICARE, MEDICAID ==
[~2019-06-25] VITALS: Ht 157.5 cm; Wt 47.2 kg
[~2019-06-25 14:15] MED LIST changes: +ALPR0.5T6 PO; +AMOX1TAB58 PO
--- NOTE | 2019-06-25 14:46 | PHYS DOC ---
Past Medical History Past Medical History: Arthritis, Bronchitis, CVA, Dementia, High Cholesterol, Hypertension, Stroke, Other Additional Past Medical Histor: abnormal gait, generalized weakness, cognitive communication deficit Past Surgical History: No Surgical History Alcohol Use: None Drug Use: None Adult General Chief Complaint Chief Complaint: MECHANICAL FALL HPI HPI Patient is a 84-year-old female, who has a history of fairly advanced dementia and is a resident of a shelter. Reportedly the patient had 2 unwitnessed falls today and was sent to the emergency department for evaluation. She has a history of frequent falls per EMS. There was a question if she was complaining of right hip pain, when she called her son earlier. The patient is not able to coherently provide any meaningful history about her fall, or painful areas. She does not appear to have any external signs of trauma. She appears to move all extremities without any complaints or pain. There are no alleviating or exacerbating factors to her symptoms. Review of Systems Review of Systems Unable to obtain secondary to dementia Allergies Allergies Allergies Coded Allergies Type Severity Reaction Last Updated Verified No Known Drug Allergies 11/15/18 No Physical Exam Physical Exam PHYSICAL EXAM: CONSTITUTIONAL: Well developed, well nourished HEAD: normocephalic, atraumatic EENT: PERRL, EOMI. Conjunctivae normal color, sclerae non-icteric; moist mucous membranes. NECK: Supple, non-tender; no meningismus.There is full, painless range of motion of the cervical spine, without any focal bony midline tenderness to palpation. LUNGS: Lungs CTA, breathing even and unlabored. Normal air movement. HEART: Regular rate and rhythm, no murmur CHEST: No deformity; non-tender. The ribs and chest wall are nontender ABDOMEN: The abdomen is soft, and non-tender, no masses or bruits. EXTREM: Normal ROM; no deformity, no calf tenderness. Normal pulses palpable in all extremities. There is 1+ bilateral pitting pedal edema. The hips and pelvis are nontender with full, unrestricted range of motion. The remainder the extrem ities appear atraumatic. SKIN: No rash; no diaphoresis NEURO: Alert; impaired cognition, no obvious focal deficit. BACK: No CVA TTP.There is no bony tenderness to palpation of the thoracic or lumbar spine. Current Patient Data Vital Signs Vital Signs Date Time Temp Pulse Resp B/P (MAP) Pulse Ox O2 Delivery O2 Flow Rate FiO2 11/11/19 14:15 97.9 67 18 184/86 (118) 99 Room Air 97.9 EKG EKG [] Radiology/Procedures Radiology/Procedures PROCEDURE: CT HEAD AND CERVICAL SPINE [facility] Compliance Statement: One or more of the following individualized dose reduction techniques were utilized for this examination: 1. Automated exposure control 2. Adjustment of the mA and/or kV according to patient size 3. Use of iterative reconstruction technique CT head and cervical spine without contrast 06/25/2019 3:40 PM INDICATION: Fall, dementia COMPARISON: CT head and cervical spine 01/24/2019 TECHNIQUE: Multiple axial CT images of the head were obtained from skull base through the vertex without intravenous contrast. Multiple axial CT images of the cervical spine were obtained without intravenous contrast. Coronal and sagittal reformats are provided. FINDINGS: Head: Ventricles, sulci and basal cisterns are prominent compatible with mild generalized cerebral volume loss. Low-attenuation in the periventricular white matter is suggestive of chronic small vessel ischemic changes. There is no hydrocephalus. Santos-white matter differentiation is normal. There is no acute intracranial hemorrhage. There is no mass, mass effect or midline shift. Posterior fossa is normal in appearance. Visualized portions of the orbits are normal. Paranasal sinuses are well aerated. Mastoid air cells are well aerated. Scalp and calvaria are normal. Cervical spine: Alignment of the cervical spine is normal. Skull base is intact. Craniocervical junction is normal in appearance. Atlantoaxial articulation is normal. There is congenital incomplete fusion of the posterior arch of C1. Vertebral body heights are maintained without evidence for acute fracture. Mild/moderate facet arthropathy asymmetric to the left. Mild uncovertebral joint disease at C3-C4. Mild osseous neuroforaminal stenosis at 4 and C4-C5 on the left.. No significant osseous spinal canal stenosis. Transverse foramen are intact. There is no prevertebral soft tissue swelling. Suspect a peripherally calcified left thyroid nodule measuring 10 mm. Visualized portions of the lung apices are normal without evidence for suspicious pulmonary nodule or infiltrate. IMPRESSION: 1. No acute intracranial hemorrhage. Mild generalized cerebral volume loss. Low-attenuation in the periventricular white matter is suggestive of chronic small vessel ischemic changes. 2. No acute fracture or malalignment of the cervical spine. Mild cervical spondylosis. 3. Suspect a peripherally calcified left thyroid nodule measuring 10 mm. Nonemergent thyroid ultrasound may be of benefit. [] PROCEDURE: HIP BILATERAL WITH PELVIS Exam: Pelvis with bilateral hips INDICATION: Fall TECHNIQUE: Frontal view of the pelvis with frontal and frog-leg lateral views of the bilateral hips Comparisons: MRI pelvis 06/07/2019 FINDINGS: There is diffuse osteopenia. No acute fractures are identified. Joint spaces are well-maintained. Soft tissues are unremarkable. IMPRESSION: Diffuse osteopenia without acute fracture identified. Known right sacral sufficiency fracture is not well seen on the current radiographs. If Patient is acutely unable to bear weight MRI to rule out occult hip fracture is recommended. Course & Med Decision Making Course & Med Decision Making Pertinent Labs and Imaging studies reviewed. (See chart for details) [] I spoke with the patient's son, who requested routine evaluation if there was no obvious acute injury requested the patient be sent back to her nursing facility. 4:40 PM:Patient remains stable. I discussed test results, the need for close follow-up, and return precautions. Dragon Disclaimer Dragon Disclaimer This electronic medical record was generated, in whole or in part, using a voice recognition dictation system. Departure Departure Impression: Primary Impression: Accidental fall Additional Impression: Dementia Disposition: HOME, SELF-CARE Condition: STABLE Referrals: RAMONA YORK MD (PCP) Patient Instructions: Dementia, Fall Prevention and Home Safety, Fall Prevention in Hospitals Problem Qualifiers NATALIA GIPSON MD Jun 25, 2019 14:46
--- NOTE | 2019-06-25 16:14 | RAD ---
PQRS Compliance Statement: One or more of the following individualized dose reduction techniques were utilized for this examination: 1. Automated exposure control 2. Adjustment of the mA and/or kV according to patient size 3. Use of iterative reconstruction technique CT head and cervical spine without contrast 06/25/2019 3:40 PM INDICATION: Fall, dementia COMPARISON: CT head and cervical spine 01/24/2019 TECHNIQUE: Multiple axial CT images of the head were obtained from skull base through the vertex without intravenous contrast. Multiple axial CT images of the cervical spine were obtained without intravenous contrast. Coronal and sagittal reformats are provided. FINDINGS: Head: Ventricles, sulci and basal cisterns are prominent compatible with mild generalized cerebral volume loss. Low-attenuation in the periventricular white matter is suggestive of chronic small vessel ischemic changes. There is no hydrocephalus. Santos-white matter differentiation is normal. There is no acute intracranial hemorrhage. There is no mass, mass effect or midline shift. Posterior fossa is normal in appearance. Visualized portions of the orbits are normal. Paranasal sinuses are well aerated. Mastoid air cells are well aerated. Scalp and calvaria are normal. Cervical spine: Alignment of the cervical spine is normal. Skull base is intact. Craniocervical junction is normal in appearance. Atlantoaxial articulation is normal. There is congenital incomplete fusion of the posterior arch of C1. Vertebral body heights are maintained without evidence for acute fracture. Mild/moderate facet arthropathy asymmetric to the left. Mild uncovertebral joint disease at C3-C4. Mild osseous neuroforaminal stenosis at 4 and C4-C5 on the left.. No significant osseous spinal canal stenosis. Transverse foramen are intact. There is no prevertebral soft tissue swelling. Suspect a peripherally calcified left thyroid nodule measuring 10 mm. Visualized portions of the lung apices are normal without evidence for suspicious pulmonary nodule or infiltrate. IMPRESSION: 1. No acute intracranial hemorrhage. Mild generalized cerebral volume loss. Low-attenuation in the periventricular white matter is suggestive of chronic small vessel ischemic changes. 2. No acute fracture or malalignment of the cervical spine. Mild cervical spondylosis. 3. Suspect a peripherally calcified left thyroid nodule measuring 10 mm. Nonemergent thyroid ultrasound may be of benefit. Electronically signed by: Evelyne Marquez MD (06/25/2019 4:11 PM) [facility]
--- NOTE | 2019-06-25 16:27 | RAD ---
Exam: Pelvis with bilateral hips INDICATION: Fall TECHNIQUE: Frontal view of the pelvis with frontal and frog-leg lateral views of the bilateral hips Comparisons: MRI pelvis 06/07/2019 FINDINGS: There is diffuse osteopenia. No acute fractures are identified. Joint spaces are well-maintained. Soft tissues are unremarkable. IMPRESSION: Diffuse osteopenia without acute fracture identified. Known right sacral sufficiency fracture is not well seen on the current radiographs. If Patient is acutely unable to bear weight MRI to rule out occult hip fracture is recommended. Electronically signed by: Clayton Chavez MD (06/25/2019 4:24 PM) [facility]
[2019-06-25 17:50] VITALS: BP 142/81
== END 2019-06-25 18:12 | disposition home or self-care (01) ==
LOC: ER 14:15
DX: M25.551 Pain in right hip (principal); G89.11 Acute pain due to trauma; R60.0 Localized edema; F03.90 Unspecified dementia, unspecified severity, without behavioral disturbance, psychotic disturbance, mood disturbance, and anxiety; M19.90 Unspecified osteoarthritis, unspecified site; E78.00 Pure hypercholesterolemia, unspecified; I10 Essential (primary) hypertension; Z86.73 Personal history of transient ischemic attack (TIA), and cerebral infarction without residual deficits; W17.89XA Other fall from one level to another, initial encounter; Y93.89 Activity, other specified; Y92.89 Other specified places as the place of occurrence of the external cause; Y99.8 Other external cause status
CPT/HCPCS: 70450; 72125; 73521; 99284-25

== ENCOUNTER 2020-03-18 20:49 | Observation (INO) | payer MEDICARE, MEDICAID ==
[~2020-03-18] VITALS: Ht 154.9 cm; Wt 55.0 kg
[~2020-03-18 20:49] MED LIST changes: -CETI10TA22 PO; +CETI10TA24 PO
--- NOTE | 2020-03-18 21:10 | PHYS DOC ---
Past Medical History Past Medical History: Arthritis, Bronchitis, CVA, Dementia, High Cholesterol, Hypertension, Stroke, Other Additional Past Medical Histor: abnormal gait, generalized weakness, cognitive communication deficit Past Surgical History: No Surgical History Smoking Status: Never Smoker Alcohol Use: None Drug Use: None General Adult EDM: Chief Complaint: altered mental status HPI: HPI: Patient is a 85 year old female who arrives via EMS for altered mental status. Patient had unwitnessed fall and has worsening mental status after the fall. History and physical is limited due to altered mental status. Patient has a prior history of dementia and a prior stroke with right-sided deficits. Patient has a mild cough on exam but does not answer questions. Review of Systems: Review of Systems: Review of systems is unobtainable due to altered mental status Of note patient has a cough and altered mental status is only thing I could ascertain Heart Score: Risk Factors: Risk Factors: DM, Current or recent (<one month) smoker, HTN, HLP, family history of CAD, obesity. Risk Scores: Score 0 - 3: 2.5% MACE over next 6 weeks - Discharge Home Score 4 - 6: 20.3% MACE over next 6 weeks - Admit for Clinical Observation Score 7 - 10: 72.7% MACE over next 6 weeks - Early Invasive Strategies Allergies: Allergies: Allergies Coded Allergies Type Severity Reaction Last Updated Verified No Known Drug Allergies 11/15/18 No Physical Exam: PE: Constitutional: Awake, protecting airway, does not follow commands patient opens eyes and responds to painful stimuli HENT: Normocephalic, ?forehead bruising bilateral external ears normal, no trismus nose normal. [] Eyes: Pupils 2 mm and sluggish Neck: Normal range of motion, no tenderness, supple, no stridor. [] Cardiovascular:Heart rate regular rhythm, peripheral pulses intact Lungs & Thorax: No respiratory distress Abdomen: soft, no tenderness, no masses, no pulsatile masses. [] Skin: Warm, dry, no erythema, no rash. [] Back: No tenderness, no CVA tenderness. [] Extremities: no cyanosis, no clubbing, ROM intact, no edema. [] Neurologic: Oriented x0, does not follow commands patient responds to painful stimuli, generalized weakness with pre-existing right-sided hemiparesis [] Psychologic: Unable to assess Current Patient Data: Labs: Laboratory Tests Test 03/18/20 21:10 8/4/20 21:15 Urine Collection Type U cath Urine Color Yellow Urine Clarity Clear Urine pH 6.0 Urine Specific [place] 1.020 Urine Protein Negative mg/dL Urine Glucose (UA) Negative mg/dL Urine Ketones (Stick) Negative mg/dL Urine Blood Negative Urine Nitrite Negative Urine Bilirubin Negative Urine Urobilinogen Dipstick 0.2 mg/dL Urine Leukocyte Esterase Negative Urine RBC Occ /HPF Urine WBC 0 /HPF Urine Squamous Epithelial Cells Occ /LPF Urine Transitional Epithelial Cells Occ /LPF Urine Bacteria 0 /HPF Urine Mucus Mod /LPF White Blood Count 6.2 x10^3/uL Red Blood Count 4.29 x10^6/uL Hemoglobin 12.7 g/dL Hematocrit 38.5 % Mean Corpuscular Volume 90 fL Mean Corpuscular Hemoglobin 30 pg Mean Corpuscular Hemoglobin Concent 33 g/dL Red Cell Distribution Width 14.3 % Platelet Count 206 x10^3/uL Neutrophils (%) (Auto) 74 % Lymphocytes (%) (Auto) 16 % Monocytes (%) (Auto) 9 % Eosinophils (%) (Auto) 1 % Basophils (%) (Auto) 0 % Neutrophils # (Auto) 4.6 x10^3/uL Lymphocytes # (Auto) 1.0 x10^3/uL Monocytes # (Auto) 0.6 x10^3/uL Eosinophils # (Auto) 0.1 x10^3/uL Basophils # (Auto) 0.0 x10^3/uL Prothrombin Time 12.7 SEC Prothromb Time International Ratio 1.0 Activated Partial Thromboplast Time 28 SEC Sodium Level 143 mmol/L Potassium Level 4.1 mmol/L Chloride Level 107 mmol/L Carbon Dioxide Level 30 mmol/L Anion Gap 6 Blood Urea Nitrogen 29 mg/dL Creatinine 0.9 mg/dL Estimated GFR (Cockcroft-Gault) 59.4 BUN/Creatinine Ratio 32 Glucose Level 86 mg/dL Lactic Acid Level 1.3 mmol/L Calcium Level 8.9 mg/dL Total Bilirubin 0.5 mg/dL Aspartate Amino Transf (AST/SGOT) 15 U/L Alanine Aminotransferase (ALT/SGPT) 21 U/L Alkaline Phosphatase 67 U/L Ammonia < 10 mcmol/L Troponin I Quantitative < 0.017 ng/mL Total Protein 7.0 g/dL Albumin 3.4 g/dL Albumin/Globulin Ratio 0.9 Lipase 493 U/L Procalcitonin < 0.10 ng/mL Current Medications Medications (Trade) Dose Ordered Sig/Luis Fernando Route PRN Reason Start Time Stop Time Status Last Admin Dose Admin Labetalol HCl (Normodyne Iv Push) 20 mg 1X ONCE IVP 03/18/20 22:30 03/18/20 22:31 DC 03/18/20 23:19 Ondansetron HCl (Zofran) 4 mg PRN Q8HRS PRN IV NAUSEA/VOMITING 1ST CHOICE 03/18/20 22:15 03/19/20 22:14 Sodium Chloride 1,000 ml @ 100 mls/hr Q10H IV 03/18/20 22:30 03/19/20 22:29 03/19/20 03:55 Laboratory Tests Test 03/18/20 21:10 03/18/20 21:15 Urine Collection Type U cath Urine Color Yellow Urine Clarity Clear Urine pH 6.0 Urine Specific [place] 1.020 Urine Protein Negative mg/dL Urine Glucose (UA) Negative mg/dL Urine Ketones (Stick) Negative mg/dL Urine Blood Negative Urine Nitrite Negative Urine Bilirubin Negative Urine Urobilinogen Dipstick 0.2 mg/dL Urine Leukocyte Esterase Negative Urine RBC Occ /HPF Urine WBC 0 /HPF Urine Squamous Epithelial Cells Occ /LPF Urine Transitional Epithelial Cells Occ /LPF Urine Bacteria 0 /HPF Urine Mucus Mod /LPF White Blood Count 6.2 x10^3/uL Red Blood Count 4.29 x10^6/uL Hemoglobin 12.7 g/dL Hematocrit 38.5 % Mean Corpuscular Volume 90 fL Mean Corpuscular Hemoglobin 30 pg Mean Corpuscular Hemoglobin Concent 33 g/dL Red Cell Distribution Width 14.3 % Platelet Count 206 x10^3/uL Neutrophils (%) (Auto) 74 % Lymphocytes (%) (Auto) 16 % Monocytes (%) (Auto) 9 % Eosinophils (%) (Auto) 1 % Basophils (%) (Auto) 0 % Neutrophils # (Auto) 4.6 x10^3/uL Lymphocytes # (Auto) 1.0 x10^3/uL Monocytes # (Auto) 0.6 x10^3/uL Eosinophils # (Auto) 0.1 x10^3/uL Basophils # (Auto) 0.0 x10^3/uL Prothrombin Time 12.7 SEC Prothromb Time International Ratio 1.0 Activated Partial Thromboplast Time 28 SEC Sodium Level 143 mmol/L Potassium Level 4.1 mmol/L Chloride Level 107 mmol/L Carbon Dioxide Level 30 mmol/L Anion Gap 6 Blood Urea Nitrogen 29 mg/dL Creatinine 0.9 mg/dL Estimated GFR (Cockcroft-Gault) 59.4 BUN/Creatinine Ratio 32 Glucose Level 86 mg/dL Lactic Acid Level 1.3 mmol/L Calcium Level 8.9 mg/dL Total Bilirubin 0.5 mg/dL Aspartate Amino Transf (AST/SGOT) 15 U/L Alanine Aminotransferase (ALT/SGPT) 21 U/L Alkaline Phosphatase 67 U/L Ammonia < 10 mcmol/L Troponin I Quantitative < 0.017 ng/mL Total Protein 7.0 g/dL Albumin 3.4 g/dL Albumin/Globulin Ratio 0.9 Lipase 493 U/L Procalcitonin < 0.10 ng/mL Current Medications Medications (Trade) Dose Ordered Sig/Luis Fernando Route PRN Reason Start Time Stop Time Status Last Admin Dose Admin Labetalol HCl (Normodyne Iv Push) 20 mg 1X ONCE IVP 03/18/20 22:30 03/18/20 22:31 Vital Signs: Vital Signs Date Time Temp Pulse Resp B/P (MAP) Pulse Ox O2 Delivery O2 Flow Rate FiO2 03/18/20 23:19 63 192/86 03/18/20 20:50 97.5 77 12 202/93 (129) 98 Room Air 97.5 Vital Signs Date Time Temp Pulse Resp B/P (MAP) Pulse Ox O2 Delivery O2 Flow Rate FiO2 03/18/20 20:50 97.5 77 12 202/93 (129) 98 Room Air 97.5 EKG: EKG: [] EKG interpreted by me normal sinus rhythm with a rate of 67 left axis deviat ion nonspecific ST changes normal intervals Radiology/Procedures: Radiology/Procedures: [][facility] [address] [place] [address] IMAGING REPORT Signed PATIENT: LILLIAM KHANNA ACCOUNT: [id number] : 1935 LOCATION: ER AGE: 85 SEX: F EXAM STATUS: REG ER ORD. PHYSICIAN: KATALINA HOLDER MD REASON: fall, ams PROCEDURE: PORTABLE CHEST 1V Exam: Chest one view INDICATION: Fall, altered mental status TECHNIQUE: Frontal view of the chest Comparisons: 06/07/2019 FINDINGS: The cardiomediastinal silhouette and pulmonary vessels are within normal limits. Trace left pleural effusion. Visualized lungs are otherwise clear. IMPRESSION: Trace left pleural effusion. Electronically signed by: Clayton Thomas MD (03/18/2020 9:41 PM) [id number] DICTATED and SIGNED BY: CLAYTON THOMAS MD DATE: 03/18/[address] [address] IMAGING REPORT Signed PATIENT: LILLIAM KHANNA ACCOUNT: [id number] : 1935 LOCATION: ER AGE: 85 SEX: F EXAM STATUS: REG ER ORD. PHYSICIAN: KATALINA HOLDER MD REASON: fall, ams PROCEDURE: PELVIS Exam: Pelvis 1 view INDICATION: Fall, altered mental status TECHNIQUE: Frontal view of the pelvis Comparisons: None FINDINGS: Bone mineralization is normal. No acute or healed fractures. Soft tissues are unremarkable. Joint spaces are well-maintained. IMPRESSION: No acute osseous abnormality. Electronically signed by: Clayton Thomas MD (03/18/2020 9:40 PM) [id number] DICTATED and SIGNED BY: CLAYTON THOMAS MD DATE: 03/18/202139 [address] [address] IMAGING REPORT Signed PATIENT: LILLIAM KHANNA ACCOUNT: [id number] : 1935 LOCATION: ER AGE: 85 SEX: F EXAM STATUS: REG ER ORD. PHYSICIAN: KATALINA HOLDER MD REASON: fall, ams PROCEDURE: CT HEAD AND CERVICAL SPINE WO Exam: CT head and cervical spine INDICATION: Fall TECHNIQUE: Sequential axial images through the head and cervical spine were obtained without the administration of IV contrast. Comparisons: 07/04/2019 FINDINGS: Head: No focal parenchymal lesion or hemorrhage is identified. There is no midline shift or sulcal effacement. Patchy hypodensity in the periventricular white matter, unchanged from prior. No acute vascular territory infarction is identified. Santos-white distinction is preserved. The ventricular system is within normal limits without compression hydrocephalus. The basal cisterns are well maintained. Mild extra cranial soft tissue scalp contusion in the right frontal region. The visualized portions of the paranasal sinuses and mastoid air cells are well-pneumatized. No acute fractures. Cervical spine: Vertebral body heights and alignment are well-maintained. Fracture to the cervical spine is not identified. No significant spondylotic change in the cervical spine. Visualized paraspinal soft tissues are unremarkable IMPRESSION: 1. Mild extra cranial soft tissue scalp contusion in the left frontal region without underlying osseous or intracranial abnormality. 2. Negative CT C-spine for acute traumatic injury. Exposure: One or more of the following in the visualized dose reduction techniques were utilized for this examination: 1. Automated exposure control 2. Adjustment of the MA and/or KV according to patient size Use of iterative of reconstructive technique Electronically signed by: Clayton Thomas MD (03/18/2020 10:28 PM) [id number] DICTATED and SIGNED BY: CLAYTON THOMAS MD DATE: 03/18/202227 Course & Med Decision Making: Course & Med Decision Making Pertinent Labs and Imaging studies reviewed. (See chart for details) [] On reassessment patient is unchanged. Patient still quite altered. Patient has no new lateralizing deficits and no known definitive last known normal therefore no TPA was given. Patient will be admitted to Dr. Parham for further observation. Neuro consult has been placed. Patient's blood pressure be treated as this may be accelerated hypertension. When patient's blood pressure was lowered she seemed to be more alert and active but still altered. Mirza Disclaimer: Mirza Disclaimer: This electronic medical record was generated, in whole or in part, using a voice recognition dictation system. Departure Departure Impression: Primary Impression: Altered mental status Additional Impression: Accelerated hypertension Disposition: 09 ADMITTED INPATIENT Admitting Physician: ISIAH GERARDO) Condition: STABLE Referrals: RAMONA YORK MD (PCP) Justicifation of Admission Dx: Justifications for Admission: Justification of Admission Dx: Yes KATALINA HOLDER MD Mar 18, 2020 21:10
[2020-03-18 21:17] LABS: BILIRUBIN,URINE NEGATIVE (NEG); CLARITY,URINE CLEAR; COLOR,URINE YELLOW; NITRITE,URINE NEGATIVE (NEG); PROTEIN,URINE NEGATIVE (NEG-TRACE); UROBILINOGEN,URINE 0.2 mg/dL (0.2 mg/dL)
[2020-03-18 21:22] LABS: BACTERIA,URINE 0 /HPF (0-FEW); RBC,URINE OCC /HPF (0-2); SQUAMOUS EPITHELIAL CELL,UR OCC /LPF
[2020-03-18 21:23] LABS: WBC,URINE 0 /HPF (0-4)
[2020-03-18 21:29] LABS: BASO % 0 % (0-3); EOS # 0.1 x10^3/uL (0.0-0.7); EOS % 1 % (0-3); HEMATOCRIT 38.5 % (36.0-47.0); HEMOGLOBIN 12.7 g/dL (12.0-15.5); LYMPH % 16 % (24-48); MEAN CORPUSCULAR HEMOGLOBIN 30 pg (25-35); MEAN CORPUSCULAR HGB CONC 33 g/dL (31-37); MEAN CORPUSCULAR VOLUME 90 fL (79-100); MONO # 0.6 x10^3/uL (0.0-1.1); MONO % 9 % (0-9); NEUT # 4.6 x10^3/uL (1.8-7.7); NEUT % 74 % (31-73); PLATELET COUNT 206 x10^3/uL (140-400); RED BLOOD COUNT 4.29 x10^6/uL (3.50-5.40); RED CELL DISTRIBUTION WIDTH 14.3 % (11.5-14.5); WHITE BLOOD COUNT 6.2 x10^3/uL (4.0-11.0)
[2020-03-18 21:38] LABS: CALCIUM 8.9 mg/dL (8.5-10.1); CREATININE 0.9 mg/dL (0.6-1.0); GFR 59.4; POTASSIUM 4.1 mmol/L (3.5-5.1)
[2020-03-18 21:41] LABS: PROTHROMBIN TIME PATIENT 12.7 SEC (11.7-14.0)
[2020-03-18 21:43] LABS: ALBUMIN 3.4 g/dL (3.4-5.0); ALBUMIN/GLOBULIN RATIO 0.9 (1.0-1.7); TOTAL BILIRUBIN 0.5 mg/dL (0.2-1.0)
--- NOTE | 2020-03-18 21:43 | RAD ---
Exam: Pelvis 1 view INDICATION: Fall, altered mental status TECHNIQUE: Frontal view of the pelvis Comparisons: None FINDINGS: Bone mineralization is normal. No acute or healed fractures. Soft tissues are unremarkable. Joint spaces are well-maintained. IMPRESSION: No acute osseous abnormality. Electronically signed by: Clayton Chavez MD (03/18/2020 9:40 PM) [id number]
--- NOTE | 2020-03-18 21:44 | RAD ---
Exam: Chest one view INDICATION: Fall, altered mental status TECHNIQUE: Frontal view of the chest Comparisons: 06/07/2019 FINDINGS: The cardiomediastinal silhouette and pulmonary vessels are within normal limits. Trace left pleural effusion. Visualized lungs are otherwise clear. IMPRESSION: Trace left pleural effusion. Electronically signed by: Clayton Chavez MD (03/18/2020 9:41 PM) [id number]
[2020-03-18] MEDS ORDERED: ONDANSETRON PF 4 MG/2 ML VIAL. IV PRN (22:15)
[2020-03-18] MEDS ORDERED: LABETALOL 20 MG/4 ML DISP.SYRIN. IVP ONE (22:30)
--- NOTE | 2020-03-18 22:31 | RAD ---
Exam: CT head and cervical spine INDICATION: Fall TECHNIQUE: Sequential axial images through the head and cervical spine were obtained without the administration of IV contrast. Comparisons: 07/04/2019 FINDINGS: Head: No focal parenchymal lesion or hemorrhage is identified. There is no midline shift or sulcal effacement. Patchy hypodensity in the periventricular white matter, unchanged from prior. No acute vascular territory infarction is identified. Santos-white distinction is preserved. The ventricular system is within normal limits without compression hydrocephalus. The basal cisterns are well maintained. Mild extra cranial soft tissue scalp contusion in the right frontal region. The visualized portions of the paranasal sinuses and mastoid air cells are well-pneumatized. No acute fractures. Cervical spine: Vertebral body heights and alignment are well-maintained. Fracture to the cervical spine is not identified. No significant spondylotic change in the cervical spine. Visualized paraspinal soft tissues are unremarkable IMPRESSION: 1. Mild extra cranial soft tissue scalp contusion in the left frontal region without underlying osseous or intracranial abnormality. 2. Negative CT C-spine for acute traumatic injury. Exposure: One or more of the following in the visualized dose reduction techniques were utilized for this examination: 1. Automated exposure control 2. Adjustment of the MA and/or KV according to patient size Use of iterative of reconstructive technique Electronically signed by: Clayton Chavez MD (03/18/2020 10:28 PM) [email or web address]
[2020-03-18] MEDS: IV NORMAL SALINE 1000ML BAG 1,000 ML IV SCH (23:18)
[2020-03-19 03:00] VITALS: BP 200/84
[2020-03-19] MEDS: IV NORMAL SALINE 1000ML BAG 1,000 ML IV SCH (03:55)
[2020-03-19] MEDS ORDERED: hydrALAZINE 20 MG/ML VIAL. IVP PRN (04:30)
[2020-03-19 07:00] VITALS: BP 130/68
--- NOTE | 2020-03-19 08:30 | NUR ---
Unable to keep tele pads or pulse O2 on pt. Pulling monitoring equipment off
--- NOTE | 2020-03-19 09:00 | NUR ---
This morning when assessing patient, patient had pulled out remaining IV, catheter was intact. Patient also removed telemetry repeatedly and will not keep on leads.
--- NOTE | 2020-03-19 10:18 | PDOC2 ---
NEUROLOGY CONSULT Date of Service DOS: DATE: 03/19/20 TIME: 10:10 Reason for Consult Reason for Consult: Altered mental status Source Source: Chart review, Patient (Limited) History of Present Illness History of Present Illness The patient is an 85-year-old female with history of stroke and dementia who fell, found on the floor, with decreased level of consciousness. Her baseline is supposedly very low level of consciousness anyway. There is no listed history of seizures. There is no one else available to give a history. Past Medical History Cardiovascular: HTN, Hyperlipidemia CENTRAL NERVOUS SYSTEM: CVA, Dementia, Other ( gait disorder, frequent falls) Musculoskeletal: Osteoarthritis Endocrine: Other ( vitamin D deficiency, hypokalemia) Past Surgical History Past Surgical History: No pertinent history ( unknown) Family History Family History: No pertinent hx ( unknown) Social History Social History [facility] resident Current Medications Current Medications Current Medications Labetalol HCl (Normodyne Iv Push) 20 mg 1X ONCE IVP Last administered on 03/18/20at 23:19; Start 03/18/20 at 22:30; Stop 03/18/20 at 22:31; Status DC Ondansetron HCl (Zofran) 4 mg PRN Q8HRS PRN IV NAUSEA/VOMITING 1ST CHOICE; Start 03/18/20 at 22:15; Stop 03/19/20 at 22:14 Sodium Chloride 1,000 ml @ 100 mls/hr Q10H IV Last administered on 03/19/20at 03:55; Start 03/18/20 at 22:30; Stop 03/19/20 at 22:29 Hydralazine HCl (Apresoline Inj) 10 mg PRN Q4HRS PRN IVP ELEVATED BP, SEE COMMENTS Last administered on 03/19/20at 04:37; Start 03/19/20 at 04:30 Active Scripts Active Reported Ibuprofen 400 Mg Tablet 400 Mg PO PRN Q8HRS PRN Acetaminophen 500 Mg Tablet 1 Tab PO TID Allergies Allergies: Coded Allergies: No Known Drug Allergies (Unverified , 11/15/18) ROS Review of System Negative for fever, chills, weight loss, shortness of breath, chest pain, indigestion, hematochezia, melena, and dysuria. Full 14-point review of systems is negative. Physical Exam Physical Examination General: Well-developed, well-nourished female in no acute distress HEENT: Normocephalic andatraumatic. Temporal arteriespulsatile and nontender. Neck: Supple without bruit, no meningismus Musculoskeletal: Stability:see neurologic. Gait exam:see neurologic. Tone:see neurologic.Strength:see neurologic. Neurological: Mental Status: orientation, memory, attention span/concentration, language, fund of knowledge: she can tell me her name. Cranial Nerves:Pupils equal and reactive to light, extraocular movements areintact, visual cohen are full to threatn. Facial sensation is normal. There is a right central facial weakness. All other cranial related problems are negative except as mentioned before.Reflexes:2+ and symmetric with flexor plantar responses. Motor: 3/5 bilaterally, spastic and decreased strength on the right side. Coordination and gait: not cooperative. Sensory: responds in all 4 extremities. Vitals VITALS Vital Signs Date Time Temp Pulse Resp B/P (MAP) Pulse Ox O2 Delivery O2 Flow Rate FiO2 03/19/20 07:00 97.0 68 18 130/68 (88) 99 Room Air 97.0 Labs Labs Laboratory Tests Test 03/18/20 21:10 03/18/20 21:15 Urine Collection Type U cath Urine Color Yellow Urine Clarity Clear Urine pH 6.0 (<5.0-8.0) Urine Specific [place] 1.020 (1.000-1.030) Urine Protein Negative mg/dL (NEG-TRACE) Urine Glucose (UA) Negative mg/dL (NEG) Urine Ketones (Stick) Negative mg/dL (NEG) Urine Blood Negative (NEG) Urine Nitrite Negative (NEG) Urine Bilirubin Negative (NEG) Urine Urobilinogen Dipstick 0.2 mg/dL (0.2 mg/dL) Urine Leukocyte Esterase Negative (NEG) Urine RBC Occ /HPF (0-2) Urine WBC 0 /HPF (0-4) Urine Squamous Epithelial Cells Occ /LPF Urine Transitional Epithelial Cells Occ /LPF Urine Bacteria 0 /HPF (0-FEW) Urine Mucus Mod /LPF White Blood Count 6.2 x10^3/uL (4.0-11.0) Red Blood Count 4.29 x10^6/uL (3.50-5.40) Hemoglobin 12.7 g/dL (12.0-15.5) Hematocrit 38.5 % (36.0-47.0) Mean Corpuscular Volume 90 fL (79-100) Mean Corpuscular Hemoglobin 30 pg (25-35) Mean Corpuscular Hemoglobin Concent 33 g/dL (31-37) Red Cell Distribution Width 14.3 % (11.5-14.5) Platelet Count 206 x10^3/uL (140-400) Neutrophils (%) (Auto) 74 % (31-73) Lymphocytes (%) (Auto) 16 % (24-48) Monocytes (%) (Auto) 9 % (0-9) Eosinophils (%) (Auto) 1 % (0-3) Basophils (%) (Auto) 0 % (0-3) Neutrophils # (Auto) 4.6 x10^3/uL (1.8-7.7) Lymphocytes # (Auto) 1.0 x10^3/uL (1.0-4.8) Monocytes # (Auto) 0.6 x10^3/uL (0.0-1.1) Eosinophils # (Auto) 0.1 x10^3/uL (0.0-0.7) Basophils # (Auto) 0.0 x10^3/uL (0.0-0.2) Prothrombin Time 12.7 SEC (11.7-14.0) Prothromb Time International Ratio 1.0 (0.8-1.1) Activated Partial Thromboplast Time 28 SEC (24-38) Sodium Level 143 mmol/L (136-145) Potassium Level 4.1 mmol/L (3.5-5.1) Chloride Level 107 mmol/L (98-107) Carbon Dioxide Level 30 mmol/L (21-32) Anion Gap 6 (6-14) Blood Urea Nitrogen 29 mg/dL (7-20) Creatinine 0.9 mg/dL (0.6-1.0) Estimated GFR (Cockcroft-Gault) 59.4 BUN/Creatinine Ratio 32 (6-20) Glucose Level 86 mg/dL (70-99) Lactic Acid Level 1.3 mmol/L (0.4-2.0) Calcium Level 8.9 mg/dL (8.5-10.1) Total Bilirubin 0.5 mg/dL (0.2-1.0) Aspartate Amino Transf (AST/SGOT) 15 U/L (15-37) Alanine Aminotransferase (ALT/SGPT) 21 U/L (14-59) Alkaline Phosphatase 67 U/L (46-116) Ammonia < 10 mcmol/L (11-34) Troponin I Quantitative < 0.017 ng/mL (0.000-0.055) Total Protein 7.0 g/dL (6.4-8.2) Albumin 3.4 g/dL (3.4-5.0) Albumin/Globulin Ratio 0.9 (1.0-1.7) Lipase 493 U/L (73-393) Procalcitonin < 0.10 ng/mL (0.00-0.10) Laboratory Tests Test 03/18/20 21:10 03/18/20 21:15 Urine Collection Type U cath Urine Color Yellow Urine Clarity Clear Urine pH 6.0 (<5.0-8.0) Urine Specific [place] 1.020 (1.000-1.030) Urine Protein Negative mg/dL (NEG-TRACE) Urine Glucose (UA) Negative mg/dL (NEG) Urine Ketones (Stick) Negative mg/dL (NEG) Urine Blood Negative (NEG) Urine Nitrite Negative (NEG) Urine Bilirubin Negative (NEG) Urine Urobilinogen Dipstick 0.2 mg/dL (0.2 mg/dL) Urine Leukocyte Esterase Negative (NEG) Urine RBC Occ /HPF (0-2) Urine WBC 0 /HPF (0-4) Urine Squamous Epithelial Cells Occ /LPF Urine Transitional Epithelial Cells Occ /LPF Urine Bacteria 0 /HPF (0-FEW) Urine Mucus Mod /LPF White Blood Count 6.2 x10^3/uL (4.0-11.0) Red Blood Count 4.29 x10^6/uL (3.50-5.40) Hemoglobin 12.7 g/dL (12.0-15.5) Hematocrit 38.5 % (36.0-47.0) Mean Corpuscular Volume 90 fL (79-100) Mean Corpuscular Hemoglobin 30 pg (25-35) Mean Corpuscular Hemoglobin Concent 33 g/dL (31-37) Red Cell Distribution Width 14.3 % (11.5-14.5) Platelet Count 206 x10^3/uL (140-400) Neutrophils (%) (Auto) 74 % (31-73) Lymphocytes (%) (Auto) 16 % (24-48) Monocytes (%) (Auto) 9 % (0-9) Eosinophils (%) (Auto) 1 % (0-3) Basophils (%) (Auto) 0 % (0-3) Neutrophils # (Auto) 4.6 x10^3/uL (1.8-7.7) Lymphocytes # (Auto) 1.0 x10^3/uL (1.0-4.8) Monocytes # (Auto) 0.6 x10^3/uL (0.0-1.1) Eosinophils # (Auto) 0.1 x10^3/uL (0.0-0.7) Basophils # (Auto) 0.0 x10^3/uL (0.0-0.2) Prothrombin Time 12.7 SEC (11.7-14.0) Prothromb Time International Ratio 1.0 (0.8-1.1) Activated Partial Thromboplast Time 28 SEC (24-38) Sodium Level 143 mmol/L (136-145) Potassium Level 4.1 mmol/L (3.5-5.1) Chloride Level 107 mmol/L (98-107) Carbon Dioxide Level 30 mmol/L (21-32) Anion Gap 6 (6-14) Blood Urea Nitrogen 29 mg/dL (7-20) Creatinine 0.9 mg/dL (0.6-1.0) Estimated GFR (Cockcroft-Gault) 59.4 BUN/Creatinine Ratio 32 (6-20) Glucose Level 86 mg/dL (70-99) Lactic Acid Level 1.3 mmol/L (0.4-2.0) Calcium Level 8.9 mg/dL (8.5-10.1) Total Bilirubin 0.5 mg/dL (0.2-1.0) Aspartate Amino Transf (AST/SGOT) 15 U/L (15-37) Alanine Aminotransferase (ALT/SGPT) 21 U/L (14-59) Alkaline Phosphatase 67 U/L (46-116) Ammonia < 10 mcmol/L (11-34) Troponin I Quantitative < 0.017 ng/mL (0.000-0.055) Total Protein 7.0 g/dL (6.4-8.2) Albumin 3.4 g/dL (3.4-5.0) Albumin/Globulin Ratio 0.9 (1.0-1.7) Lipase 493 U/L (73-393) Procalcitonin < 0.10 ng/mL (0.00-0.10) Images Images CT head and cervical spine INDICATION: Fall TECHNIQUE: Sequential axial images through the head and cervical spine were obtained without the administration of IV contrast. Comparisons: 07/04/2019 FINDINGS: Head: No focal parenchymal lesion or hemorrhage is identified. There is no midline shift or sulcal effacement. Patchy hypodensity in the periventricular white matter, unchanged from prior. No acute vascular territory infarction is identified. Santos-white distinction is preserved. The ventricular system is within normal limits without compression hydrocephalus. The basal cisterns are well maintained. Mild extra cranial soft tissue scalp contusion in the right frontal region. The visualized portions of the paranasal sinuses and mastoid air cells are well-pneumatized. No acute fractures. Cervical spine: Vertebral body heights and alignment are well-maintained. Fracture to the cervical spine is not identified. No significant spondylotic change in the cervical spine. Visualized paraspinal soft tissues are unremarkable IMPRESSION: 1. Mild extra cranial soft tissue scalp contusion in the left frontal region without underlying osseous or intracranial abnormality. 2. Negative CT C-spine for acute traumatic injury. 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 Recommendations: Observation, perhaps one more night There is no need for additional neurological studies such as MRI of the brain, for which she would require general anesthesia, carotid studies, echocardiogram, electroencephalogram, lumbar puncture. Thank you for letting me help with the patient's care. SONJA GARDUNO MD Mar 19, 2020 10:18
[2020-03-19 11:00] VITALS: BP 159/92
--- NOTE | 2020-03-19 11:01 | SNU/HH DC ---
DISCHARGE ORDERS DISCHARGE INFORMATION: FINAL DIAGNOSIS Problems Medical Problems: (1) Accelerated hypertension Status: Acute (2) Altered mental status Status: Acute CONDITION ON DISCHARGE: Stable CODE STATUS: Code Status: Full SNF: SNF STAY <30 DAYS: No HOSPICE: HOSPICE: No HOSPICE EVAL & TREAT: No LTAC: ADMIT TO LTAC: No POST DISCHARGE ORDERS: ACTIVITY ORDERS: Activity as tolerated DIET AFTER DISCHARGE: Cardiac CHECKS AFTER DISCHARGE: CHECKS AFTER DISCHARGE: Check blood press - daily DISCHARGE MEDICATIONS: Home Meds Reported Medications Ibuprofen (IBUPROFEN) 400 Mg Tablet, 400 MG PO PRN Q8HRS PRN for INFLAMMATION, TAB 01/24/19 Acetaminophen (ACETAMINOPHEN) 500 Mg Tablet, 1 TAB PO TID for pain, #60 TAB 1 Refill 01/24/19 LIDIA ELLER III DO Mar 19, 2020 11:01
--- NOTE | 2020-03-19 11:33 | SSS ---
ADMIT DATE: 03/19/2020 CHIEF COMPLAINT: Mental status change, fall. HISTORY OF PRESENT ILLNESS: The patient is a pleasant elderly lady who lives in a residential. Basically, she has developed some mental status change. She fell, had a contusion to her head. She was brought in for evaluation. We admitted the patient overnight for observation and rule out COVID-19. This morning, she is being examined on the medical floor where she is probably at her baseline. We are awaiting the COVID-19 test. We did consult Neurology. So far they are not planning on any more additional testing. I am hoping to discharge this afternoon if her COVID testing is negative. PAST MEDICAL HISTORY: Arthritis, bronchitis, stroke, dementia, hyperlipidemia, hypertension, gait disorder, cognitive communication deficit. ALLERGIES: None. FAMILY HISTORY: Dementia. SOCIAL HISTORY: She lives in a residential, does not drink, smoke or take drugs. MEDICATIONS: Reviewed, please refer to the MRAD. REVIEW OF SYSTEMS: Unable to obtain. She is a poor historian. PHYSICAL EXAMINATION: VITALS: Within normal limits and are stable. GENERAL: She is a little agitated, pulling off her tele monitor. ____ IV in her. HEENT: Normal cephalic atraumatic, external auditory canals are patent EYES: Extraocular muscles are intact, pupils are equally round and reactive to light and accommodation MUSCULOSKELETAL: Well developed, well nourished, good range of motion ENDOCRINE: No thyromegaly was palpated LYMPHATICS: No cervical chain or axillary nodes were noted HEMATOPOIETIC: No bruising NECK: Supple, no JVD, no thyromegaly was noted. LUNGS: Clear to auscultation in all lung cohen without rhonchi or wheezing. HEART: RRR, S1, S2 present. Peripheral pulses intact, no obvious murmurs were noted. ABDOMEN: Soft, nontender. Positive bowel sounds no organomegaly, normal bowel sounds. EXTREMITIES: Without any cyanosis, clubbing, or edema. Pedal pulses intact, Homans sign is negative. NEUROLOGIC: She is pleasantly confused. PSYCHIATRIC: Seems anxious. SKIN: No ulcerations or rashes, good skin turgor, no jaundice. VASCULAR: Good capillary refill, neurovascular bundle appears to be intact. ASSESSMENT AND PLAN: Mental status change, fall and head contusion, possible concussion. Clinically, the patient seems ready for discharge. We did consult Dr. Reeves. He is okay with her stay 1 more night if necessary. Again, we are testing COVID-19 and if it is negative, I am going to go ahead and let her get back to her residential. DARRENL Ubaldo ELLER DO DR: STEPHAN/nicolas JOB#: [id number] / [id number]
--- NOTE | 2020-03-19 12:50 | NUR ---
This nurse called to patient's room, patient was on the floor neat the foot of the bed. Patient stated that she fell trying to find her shoes and was unable to get up on her own. Her alarm was on and responded to by Conchita CHONG. Patient stated she was not having pain other than in her feet, which is baseline. No bleeding or injury observed. Vital signs are stable 174/83BP, 96% RA, HR 119, Axillary temp 97.5. Respirations 20. Patient's son, Rahul was notified of fall as well as Dr. Paul and [employer] inspection department ARLETTE Wagner.
--- NOTE | 2020-03-19 14:36 | EKG ---
[facility] [address] [place] [address] Test Date: 2020-03-18 Test Time: 21:05:06 Pat Name: LILLIAM KHANNA Department: Room: Gender: F Record Press Tender: : 1935 Requested By: KATALINA HOLDER Order Number: [id number] Reading MD: Measurements Intervals [place] Rate: 67 P: 34 [place]: 172 QRS: -6 QRSD: 80 T: 27 QT: 372 QTc: 396 Interpretive Statements SINUS RHYTHM LEFT ATRIAL ABNORMALITY LEFTWARD AXIS ABNORMAL ECG RI6.01 No previous ECG available for comparison
[2020-03-19 15:00] VITALS: BP 188/82
--- NOTE | 2020-03-19 17:40 | NUR ---
SW following. Spoke with RN and reviewed chart. Pt to discharge home today self-care with no SW needs identified.
[2020-03-19 19:00] VITALS: BP 175/84
[2020-03-19] MEDS: HALOPERIDOL LACTATE 5 MG/ML VIAL. IM PRN (21:09)
[2020-03-19 23:00] VITALS: BP 180/74
[2020-03-20 03:31] VITALS: BP 114/52
[2020-03-20 07:15] VITALS: BP 149/89
[2020-03-20] MEDS: HALOPERIDOL LACTATE 5 MG/ML VIAL. IM PRN (09:32)
--- NOTE | 2020-03-20 11:14 | PDOC ---
[employer] PROGRESS NOTE Date of Service DOS: DATE: 03/20/20 TIME: 11:07 Chief Complaint Chief Complaint Altered mental status History of Present Illness History of Present Illness 03/20/20 Patient seen and examined Chart reviewed Discussed with RN Patient was on the floor at the foot of the bed yesterday A cushioning surface has been placed next to her bed as a precaution Vitals/I&O Vitals/I&O: Vital Signs Date Time Temp Pulse Resp B/P (MAP) Pulse Ox O2 Delivery O2 Flow Rate FiO2 03/20/20 07:15 97.9 82 16 149/89 (109) 98 Room Air 97.9 I & O 03/19/20 03/19/20 03/20/20 15:00 23:00 07:00 Intake Total 0 ml Output Total 0 ml Balance 0 ml 0 ml Physical Exam General: mild distress Heart: Regular rate Lungs: Clear Extremities: No edema Skin: No significant lesion Assessment and Plan Assessmemt and Plan Problems Medical Problems: (1) Accelerated hypertension Status: Acute (2) Altered mental status Status: Acute Assessment: Altered mental status Covid results pending Plan: Fall precautions DVT prophylaxis Hope to discharge back to long term Full code Respiratory isolation Appreciate subspecialist input Comment Review of Relevant I have reviewed the following items javier (where applicable) has been applied. Medications: Current Medications Medications (Trade) Dose Ordered Sig/Luis Fernando Route PRN Reason Start Time Stop Time Status Last Admin Dose Admin Haloperidol Lactate (Haldol Inj) 5 mg PRN Q8HRS PRN IM ANXIETY / AGITATION 03/19/20 20:30 03/20/20 09:32 Justicifation of Admission Dx: Justifications for Admission: Justification of Admission Dx: Yes LIDIA ELLER III DO Mar 20, 2020 11:14
[2020-03-20 11:20] VITALS: BP 144/70
--- NOTE | 2020-03-20 13:42 | PDOC ---
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 COVID positive Plan Okay for discharge No additional neurological studies needed or appropriate. Subjective None Objective Vital Signs Date Time Temp Pulse Resp B/P (MAP) Pulse Ox O2 Delivery O2 Flow Rate FiO2 03/20/20 11:20 97.9 82 16 144/70 (94) 98 Room Air 97.9 Intake and Output 03/20/20 07:00 Intake Total 0 ml Output Total 0 ml Balance 0 ml Intake Oral 0 ml Output Urine Total 0 ml # Voids 2 PHYSICAL EXAM Patient sleeping, did not awaken Review of Relevant I have reviewed the following items javier (where applicable) has been applied. Labs Laboratory Tests Test 03/18/20 21:10 03/18/20 21:15 03/18/20 23:23 Urine Collection Type U cath Urine Color Yellow Urine Clarity Clear Urine pH 6.0 (<5.0-8.0) Urine Specific [place] 1.020 (1.000-1.030) Urine Protein Negative mg/dL (NEG-TRACE) Urine Glucose (UA) Negative mg/dL (NEG) Urine Ketones (Stick) Negative mg/dL (NEG) Urine Blood Negative (NEG) Urine Nitrite Negative (NEG) Urine Bilirubin Negative (NEG) Urine Urobilinogen Dipstick 0.2 mg/dL (0.2 mg/dL) Urine Leukocyte Esterase Negative (NEG) Urine RBC Occ /HPF (0-2) Urine WBC 0 /HPF (0-4) Urine Squamous Epithelial Cells Occ /LPF Urine Transitional Epithelial Cells Occ /LPF Urine Bacteria 0 /HPF (0-FEW) Urine Mucus Mod /LPF White Blood Count 6.2 x10^3/uL (4.0-11.0) Red Blood Count 4.29 x10^6/uL (3.50-5.40) Hemoglobin 12.7 g/dL (12.0-15.5) Hematocrit 38.5 % (36.0-47.0) Mean Corpuscular Volume 90 fL (79-100) Mean Corpuscular Hemoglobin 30 pg (25-35) Mean Corpuscular Hemoglobin Concent 33 g/dL (31-37) Red Cell Distribution Width 14.3 % (11.5-14.5) Platelet Count 206 x10^3/uL (140-400) Neutrophils (%) (Auto) 74 % (31-73) Lymphocytes (%) (Auto) 16 % (24-48) Monocytes (%) (Auto) 9 % (0-9) Eosinophils (%) (Auto) 1 % (0-3) Basophils (%) (Auto) 0 % (0-3) Neutrophils # (Auto) 4.6 x10^3/uL (1.8-7.7) Lymphocytes # (Auto) 1.0 x10^3/uL (1.0-4.8) Monocytes # (Auto) 0.6 x10^3/uL (0.0-1.1) Eosinophils # (Auto) 0.1 x10^3/uL (0.0-0.7) Basophils # (Auto) 0.0 x10^3/uL (0.0-0.2) Prothrombin Time 12.7 SEC (11.7-14.0) Prothromb Time International Ratio 1.0 (0.8-1.1) Activated Partial Thromboplast Time 28 SEC (24-38) Sodium Level 143 mmol/L (136-145) Potassium Level 4.1 mmol/L (3.5-5.1) Chloride Level 107 mmol/L (98-107) Carbon Dioxide Level 30 mmol/L (21-32) Anion Gap 6 (6-14) Blood Urea Nitrogen 29 mg/dL (7-20) Creatinine 0.9 mg/dL (0.6-1.0) Estimated GFR (Cockcroft-Gault) 59.4 BUN/Creatinine Ratio 32 (6-20) Glucose Level 86 mg/dL (70-99) Lactic Acid Level 1.3 mmol/L (0.4-2.0) Calcium Level 8.9 mg/dL (8.5-10.1) Total Bilirubin 0.5 mg/dL (0.2-1.0) Aspartate Amino Transf (AST/SGOT) 15 U/L (15-37) Alanine Aminotransferase (ALT/SGPT) 21 U/L (14-59) Alkaline Phosphatase 67 U/L (46-116) Ammonia < 10 mcmol/L (11-34) Troponin I Quantitative < 0.017 ng/mL (0.000-0.055) Total Protein 7.0 g/dL (6.4-8.2) Albumin 3.4 g/dL (3.4-5.0) Albumin/Globulin Ratio 0.9 (1.0-1.7) Lipase 493 U/L (73-393) Procalcitonin < 0.10 ng/mL (0.00-0.10) Coronavirus (PCR) Detected (Not Detected) Microbiology 03/18/20 Blood Culture - Preliminary, Resulted NO GROWTH AFTER 1 DAY Medications Current Medications Labetalol HCl (Normodyne Iv Push) 20 mg 1X ONCE IVP Last administered on 03/18/20at 23:19; Start 03/18/20 at 22:30; Stop 03/18/20 at 22:31; Status DC Ondansetron HCl (Zofran) 4 mg PRN Q8HRS PRN IV NAUSEA/VOMITING 1ST CHOICE; Start 03/18/20 at 22:15; Stop 03/19/20 at 22:14; Status DC Sodium Chloride 1,000 ml @ 100 mls/hr Q10H IV Last administered on 03/19/20at 03:55; Start 03/18/20 at 22:30; Stop 03/19/20 at 11:03; Status DC Hydralazine HCl (Apresoline Inj) 10 mg PRN Q4HRS PRN IVP ELEVATED BP, SEE COMMENTS Last administered on 03/19/20at 04:37; Start 03/19/20 at 04:30 Haloperidol Lactate (Haldol Inj) 5 mg PRN Q8HRS PRN IM ANXIETY / AGITATION Last administered on 03/20/20at 09:32; Start 03/19/20 at 20:30 Active Scripts Active Reported Ibuprofen 400 Mg Tablet 400 Mg PO PRN Q8HRS PRN Acetaminophen 500 Mg Tablet 1 Tab PO TID Vitals/I & O Vital Sign - Last 24 Hours 03/19/20 03/19/20 03/19/20 03/19/20 15:00 19:00 20:00 23:00 Temp 97.7 97.1 97.1 97.7 97.1 97.1 Pulse 59 68 88 Resp 18 19 20 B/P (MAP) 188/82 (117) 175/84 (114) 180/74 (109) Pulse Ox 96 100 99 O2 Delivery Room Air Room Air Room Air 03/20/20 03/20/20 03/20/20 03/20/20 03:31 07:15 08:00 11:20 Temp 99.9 97.9 97.9 99.9 97.9 97.9 Pulse 80 82 82 Resp 20 16 16 B/P (MAP) 114/52 (72) 149/89 (109) 144/70 (94) Pulse Ox 99 98 98 O2 Delivery Room Air Room Air Room Air Room Air Intake and Output 03/19/20 03/19/20 03/20/20 15:00 23:00 07:00 Intake Total 0 ml Output Total 0 ml Balance 0 ml 0 ml Justicifation of Admission Dx: Justifications for Admission: Justification of Admission Dx: Yes SONJA GARDUNO MD Mar 20, 2020 13:42
[2020-03-20 15:19] VITALS: BP 149/71
--- NOTE | 2020-03-20 15:34 | NUR ---
REPORT CALLED TO ARLETTE CORONADO AT [facility]. ANSWERED ALL QUESTIONS AND CALL BACK NUMBER PROVIDED IF FURTHER ASSISTANCE IS NEEDED. TENTATIVE PICK-UP TIME [phone] VIA STRETCHER. WILL CONTINUE TO MONITOR.
--- NOTE | 2020-03-20 16:13 | NUR ---
Discharge Note: MATT KHANNA [facility] Discharge instructions and discharge home medications reviewed with Patient and a copy given. All questions have been answered and understanding verbalized. The following instructions and handouts were given: Discontinued lines and drains: Peripheral IV intact. Patient discharged to Front Desk Coordinator Care withFamily Membervia Stretcher Addendum: 03/20/20 at 1615 by SAMPSON MIRANDA RN Discharge Note: LILLIAM KHANNA [address] [place] [address] Discharge instructions and discharge home medications reviewed with ARLETTE Medel at [facility] and a copy given. All questions have been answered and understanding verbalized. The following instructions and handouts were given: f/u with pcp as needed. Discontinued lines and drains: Peripheral IV intact. Patient discharged to Long-Term Care with Self via Stretcher
== END 2020-03-20 16:15 | disposition home or self-care (01) ==
LOC: ER 20:49 → 6 SOUTH 03-19 00:09
PROVIDERS: ADMIT Internal Medicine; ATTEND Internal Medicine
DX: U07.1 COVID-19 (principal); R41.82 Altered mental status, unspecified; S00.03XA Contusion of scalp, initial encounter; I10 Essential (primary) hypertension; I69.351 Hemiplegia and hemiparesis following cerebral infarction affecting right dominant side; E78.00 Pure hypercholesterolemia, unspecified; F02.80 Dementia in other diseases classified elsewhere, unspecified severity, without behavioral disturbance, psychotic disturbance, mood disturbance, and anxiety; E87.6 Hypokalemia; M19.90 Unspecified osteoarthritis, unspecified site; E55.9 Vitamin D deficiency, unspecified; R29.6 Repeated falls; R26.9 Unspecified abnormalities of gait and mobility; W19.XXXA Unspecified fall, initial encounter; Z91.81 History of falling; Y93.89 Activity, other specified; Y92.89 Other specified places as the place of occurrence of the external cause; Y99.8 Other external cause status
CPT/HCPCS: 36415; 70450; 71045; 72125; 72170; 80053; 81001; 82140; 83605; 83690; 84145; 84484; 85025; 85610; 85730; 87040; 93005; 96361; 96372; 96374; 96375; 99285; G0378; J0360; J1630; J3490; J7030; U0003; G0379